=== PATIENT | male | born 1930 | race Caucasian/White ===

== ENCOUNTER → 2017-09-18 | Outpatient (CLI) | payer MEDICARE ==
[2017-09-18 12:08] LABS: ABSOLUTE BASOPHILS # (AUTO) 0.1 10^3/uL (0.0-0.2); ABSOLUTE EOSINOPHILS # (AUTO) 0.1 10^3/uL (0.0-0.6); ABSOLUTE LYMPHOCYTES (AUTO) 1.6 10^3/uL (0.5-4.7); ABSOLUTE MONOCYTES (AUTO) 0.7 10^3/uL (0.1-1.4); BASOPHILS % (AUTO) 0.9 % (0-2); EOSINOPHILS % (AUTO) 1.7 % (0-6); HEMATOCRIT 43.5 % (37.9-51.0); HEMOGLOBIN 14.6 g/dL (13.5-17.0); HGB HCT DIFFERENCE 0.3; LYMPHOCYTES % (AUTO) 18.5 % (13-45); MEAN CORPUSCULAR HEMOGLOBIN 33.3 pg (27.0-33.4); MEAN CORPUSCULAR HGB CONC 33.5 g/dL (32.0-36.0); MEAN CORPUSCULAR VOLUME 100 fl (80-97); MONOCYTES % (AUTO) 8.4 % (3-13); RED BLOOD COUNT 4.37 10^6/uL (4.35-5.55); RED CELL DISTRIBUTION WIDTH 15.4 % (11.5-14.0); SEGMENTED NEUTROPHILS % (AUTO) 70.5 % (42-78); WHITE BLOOD COUNT 8.5 10^3/uL (4.0-10.5)
[2017-09-18 12:46] LABS: ERYTHROCYTE SEDIMENTATION RATE 11 mm/hr (0-20)
== END ==
LOC: OD 11:08
PROVIDERS: ATTEND Orthopaedic Surgery Sports Medicine
DX: M16.12 Unilateral primary osteoarthritis, left hip (principal); M25.552 Pain in left hip; Z96.643 Presence of artificial hip joint, bilateral
CPT/HCPCS: 36415; 85025; 85652; 86140

== ENCOUNTER → 2017-09-20 | Outpatient (CLI) | payer MEDICARE ==
--- NOTE | 2017-09-20 16:14 | RADIOLOGY REPORT (SQ) ---
EXAM DESCRIPTION: NM 3 PHASE BONE SCAN COMPLETED DATE/TIME: 09/20/2017 2:53 pm REASON FOR STUDY: M25.552 PAIN IN LEFT HIP M25.552 PAIN IN LEFT HIP COMPARISON: Left hip films 06/14/2017, 03/30/2017 RADIONUCLIDE AND DOSE: 22 millicuries Tc99m MDP. The route of agent administration: Intravenous. ADDITIONAL DRUGS AND DOSES: None. TECHNIQUE: Following injection of the radiopharmaceutical, serial blood flow images acquired. Equil ibrium blood pool images then acquired. Routine delayed images at 3 hours acquired of the areas of c linical concern with additional focused images as needed. AREA OF INTEREST: Bony pelvis and left hip LIMITATIONS: None. FINDINGS: VASCULAR FLOW IMAGES: No asymmetry or focal areas of hyperemia. BLOOD POOL IMAGES: No asymmetry or focal areas of soft-tissue hyper-perfusion. BONES: Delayed images demonstrate markedly increased uptake along the left proximal femur greater and lesser trochanter in an area of incompletely healed fracture. There is also focal increased uptake along the distal tip of the left femoral component of the hip replacement indicating loosening of the prosthesis. No abnormal bony pelvis uptake worrisome for occult pelvic fracture. OTHER: No other significant finding. IMPRESSION: Increased uptake along the left proximal femur greater and lesser trochanter in an area of incompletely healed fracture. Suspect left femoral component prosthesis loosening, with increased uptake along the left femoral gavin physis adjacent to the tip of the prosthesis COMMENT: Quality measure 147: Current bone scan is compared with any available plain radiographs, p rior bone scans, and CT/MRI. TECHNICAL DOCUMENTATION: JOB ID: [id number] [employer]- All Rights Reserved
== END ==
LOC: RAD 11:31
PROVIDERS: ATTEND Orthopaedic Surgery Sports Medicine
DX: M25.552 Pain in left hip (principal)
CPT/HCPCS: 78315; A9561; Q9969

== ENCOUNTER → 2017-10-26 | Outpatient (CLI) | payer MEDICARE ==
--- NOTE | 2017-10-26 15:09 | RADIOLOGY REPORT (SQ) ---
EXAM DESCRIPTION: VENOUS UNILATERAL LOWER COMPLETED DATE/TIME: 10/26/2017 3:01 pm REASON FOR STUDY: LLE SWELLING R60.0 LOCALIZED EDEMA COMPARISON: None. TECHNIQUE: Dynamic and static contreras scale and color images acquired of the left leg venous system. Se lected spectral images acquired with additional compression and augmentation maneuvers. The contralat eral common femoral vein and saphenofemoral junction were also imaged. Images stored on PACS. LIMITATIONS: None. FINDINGS: COMMON FEMORAL: Normal phasicity, compression and augmentation. No visualized echogenic ma terial on contreras scale. No defects on color images. FEMORAL: Normal compression and augmentation. No visualized echogenic material on contreras scale. No defe cts on color images. POPLITEAL: Normal compression, augmentation. No visualized echogenic material on contreras scale. No defec ts on color images. CALF VESSELS: Normal compression, augmentation. No visualized echogenic material on contreras scale. No de fects on color images. GSV and SSV: Normal compression, augmentation. No visualized echogenic material on contreras scale. No def ects on color images. ANY DEEP VENOUS INSUFFICIENCY: Not evaluated. ANY EVIDENCE OF POPLITEAL CYST: No. OTHER: No other significant finding. CONTRALATERAL COMMON FEMORAL VEIN AND SAPHENOFEMORAL JUNCTION: Normal phasicity, compression and augmentation. No visualized echogenic material on contreras scale. No de fects on color images. IMPRESSION: NO EVIDENCE DVT OR SVT IN THE LEFT LEG. TECHNICAL DOCUMENTATION: JOB ID: [id number] [employer]- All Rights Reserved
== END ==
LOC: SP 13:54
PROVIDERS: ATTEND Internal Medicine
DX: R60.0 Localized edema (principal)
CPT/HCPCS: 93971

== ENCOUNTER 2020-04-06 10:13 | Emergency (ER) | payer MEDICARE ==
[2020-04-06] MEDS ORDERED: ASPIRIN 81 MG TABLET, CHEWABLE PO ONE (10:25)
--- NOTE | 2020-04-06 10:29 | ER Document Report ---
ED Medical Screen (RME) - General Chief Complaint: Shortness Of Breath Stated Complaint: CHEST PAIN,SHORTNESS OF BREATH Primary Care Provider: ARVIN TAYLOR MD [Primary Care Provider] - Follow up as needed Mode of Arrival: Wheelchair Information source: Patient, Relative Notes: 89-year-old male presented to ED for upper back pain after he fell a week ago. He does have a bruise to the left upper back. Patient has pain with deep breathing. He is alert and oriented . He states he does have a pacemaker that paces his heart. He states he has had shortness of breath since this fall. I have greeted and performed a rapid initial assessment of this patient. A comprehensive ED assessment and evaluation of the patient, analysis of test results and completion of medical decision making process will be conducted by an additional ED providers. TRAVEL OUTSIDE OF THE [place] IN LAST 30 DAYS: No - Related Data Allergies/Adverse Reactions: codeine [Codeine] Adverse Reaction (Verified 07/25/16 02:57) N/V morphine [Morphine] Adverse Reaction (Verified 07/25/16 02:57) NAUSEA AND VOMITING Past Medical History - Past Medical History Cardiac Medical History: Reports: Hx Atrial Fibrillation, Hx Hypertension Denies: Hx Congestive Heart Failure, Hx DVT, Hx Heart Attack, Hx Hypercholesterolemia, Hx Pulmonary Embolism Pulmonary Medical History: Reports: Hx Asthma - ALBUTEROL RESCUE INHALER PRN Neurological Medical History: Denies: Hx Cerebrovascular Accident, Hx Seizures Endocrine Medical History: Denies: Hx Diabetes Mellitus Type 1, Hx Diabetes Mellitus Type 2, Hx Hyperthyroidism, Hx Hypothyroidism Malignancy Medical History: Reports Hx Skin Cancer GI Medical History: Reports: Hx Gastroesophageal Reflux Disease. Denies: Hx Cirrhosis, Hx Hepatitis, Hx Hiatal Hernia, Hx Ulcer Musculoskeltal Medical History: Reports Hx Arthritis Skin Medical History: Denies Hx Eczema, Denies Hx Psoriasis Psychiatric Medical History: Denies: Hx Depression Infectious Medical History: Denies: Hx Hepatitis Past Surgical History: Reports: Hx Cardiac Surgery - pacemaker placement, Hx Cholecystectomy, Hx Orthopedic Surgery - hip replacement, Hx Pacemaker. Denies: Hx Open Heart Surgery - Immunizations Hx Diphtheria, Pertussis, Tetanus Vaccination: No Doctor's Discharge - Discharge Referrals: ARVIN TAYLOR MD [Primary Care Provider] - Follow up as needed
--- NOTE | 2020-04-06 10:45 | EKG REPORT ---
SEVERITY:- ABNORMAL ECG - ATRIAL-SENSED VENTRICULAR-PACED RHYTHM : Confirmed by: Singh Sevilla MD 06-Apr-2020 10:44:09
--- NOTE | 2020-04-06 11:10 | RADIOLOGY REPORT (SQ) ---
EXAM DESCRIPTION: CHEST SINGLE VIEW IMAGES COMPLETED DATE/TIME: 04/06/2020 10:58 am REASON FOR STUDY: Fall week ago continued pain in the posterior ribs COMPARISON: 07/25/2016 EXAM PARAMETERS: NUMBER OF VIEWS: One view. TECHNIQUE: Single frontal radiographic view of the chest acquired. RADIATION DOSE: NA LIMITATIONS: None. FINDINGS: LUNGS AND PLEURA: No opacities, masses or pneumothorax. No pleural effusion. MEDIASTINUM AND HILAR STRUCTURES: No masses. Contour normal. HEART AND VASCULAR STRUCTURES: Heart normal in size. Normal vasculature. BONES: No acute findings. HARDWARE: Left-sided cardiac pacer with leads overlying right atrium and right ventricle. OTHER: No other significant finding. IMPRESSION: No evidence of acute cardiopulmonary process. TECHNICAL DOCUMENTATION: JOB ID: [id number] 2010 [employer]- All Rights Reserved Reading location - IP/workstation name: [email or web address]
[2020-04-06 11:21] LABS: ABSOLUTE LYMPHOCYTES (AUTO) 0.4 10^3/uL (0.5-4.7); ABSOLUTE MONOCYTES (AUTO) 0.5 10^3/uL (0.1-1.4); BASOPHILS % (AUTO) 0.7 % (0-2); EOSINOPHILS % (AUTO) 0.3 % (0-6); LYMPHOCYTES % (AUTO) 8.9 % (13-45); MEAN CORPUSCULAR HEMOGLOBIN 32.2 pg (27.0-33.4); MEAN CORPUSCULAR HGB CONC 33.3 g/dL (32.0-36.0); MEAN CORPUSCULAR VOLUME 97 fl (80-97); MONOCYTES % (AUTO) 9.6 % (3-13); PLATELET COUNT 263 10^3/uL (150-450); RED BLOOD COUNT 4.64 10^6/uL (4.35-5.55); RED CELL DISTRIBUTION WIDTH 24.4 % (11.5-14.0); SEGMENTED NEUTROPHILS % (AUTO) 80.5 % (42-78); TOTAL CELLS COUNTED % (AUTO) 100 %; WHITE BLOOD COUNT 4.9 10^3/uL (4.0-10.5)
[2020-04-06 11:46] LABS: ANISOCYTOSIS 3+; POIKILOCYTOSIS SLIGHT
[2020-04-06 11:47] LABS: OVALOCYTES SLIGHT; PLATELET CLUMPS PRESENT; PLATELET COMMENT ADEQUATE
[2020-04-06 11:53] LABS: ALBUMIN 3.5 g/dL (3.5-5.0); ALKALINE PHOSPHATASE 127 U/L (38-126); ANION GAP 6 (5-19); ASPARTATE AMINO TRANSFERASE 62 U/L (17-59); BILIRUBIN,DIRECT 0.3 mg/dL (0.0-0.4); BLOOD UREA NITROGEN 29 mg/dL (7-20); CALCIUM 8.3 mg/dL (8.4-10.2); CARBON DIOXIDE 27 mmol/L (22-30); CHLORIDE 107 mmol/L (98-107); GLUCOSE 110 mg/dL (75-110); POTASSIUM 4.2 mmol/L (3.6-5.0); TOTAL PROTEIN 6.7 g/dL (6.3-8.2)
[2020-04-06 12:06] LABS: NT PRO BNP 277 pg/mL (<450)
[2020-04-06 12:11] LABS: TROPONIN I < 0.012 ng/mL
[2020-04-06 12:53] LABS: APPEARANCE,URINE CLOUDY; BILIRUBIN,URINE NEGATIVE (NEGATIVE); COLOR,URINE YELLOW; GLUCOSE, URINE NEGATIVE (NEGATIVE); KETONES,URINE NEGATIVE (NEGATIVE); PROTEIN,URINE NEGATIVE (NEGATIVE); URINE SPECIFIC GRAVITY 1.014; UROBILINOGEN,URINE NEGATIVE mg/dL (<2.0)
[2020-04-06 13:38] LABS: INTERNATIONAL RATION (INR) 2.11
[2020-04-06 13:39] LABS: PARTIAL THROMBOPLASTIN TIME 43.8 SEC (23.5-35.8)
--- NOTE | 2020-04-06 13:42 | ER Document Report ---
ED General - General Chief Complaint: Shortness Of Breath Stated Complaint: CHEST PAIN,SHORTNESS OF BREATH Time Seen by Provider: 04/06/20 10:29 Primary Care Provider: ARVIN TAYLOR MD [Primary Care Provider] - Follow up as needed Mode of Arrival: Wheelchair TRAVEL OUTSIDE OF THE [place] IN LAST 30 DAYS: No - HPI Notes: Patient is an 89-year-old male who presents to the emergency department for evaluation of shortness of breath. He states he woke suddenly at about 2 AM with it. He had been laying on his left side. He states that he has had some pain in the right side of his thorax, posteriorly. He states that he has had that pain since waking up at 2 AM. He states that shortness of breath and that pain resolved prior to arrival. He states he is also had some pain in his right inferior chest, but this is from falling and striking his chest wall on a table last week. He denied hitting his head or losing consciousness. No neck or back pain. He said no fevers or chills. He is not coughing. He is swelling in his legs, but he states that improved by the next morning every night. He states the swelling is not been worse than normal. He denies any medication changes. He has been taking his medications as prescribed. His pain is sharp, sore, worsened by touch. Nothing seems to make it better. He states that the dyspnea that he had overnight was not improved by sitting up. He really did not find anything that made it better or worse. - Related Data Allergies/Adverse Reactions: codeine [Codeine] Adverse Reaction (Verified 07/25/16 02:57) N/V morphine [Morphine] Adverse Reaction (Verified 07/25/16 02:57) NAUSEA AND VOMITING Home Medications: List reviewed on chart Past Medical History - General Information source: Patient, Relative - Social History Smoking Status: Never Smoker Family History: Reviewed & Not Pertinent, Hypertension - Past Medical History Cardiac Medical History: Reports: Hx Atrial Fibrillation, Hx Hypertension Denies: Hx Congestive Heart Failure, Hx DVT, Hx Heart Attack, Hx Hypercholesterolemia, Hx Pulmonary Embolism Pulmonary Medical History: Reports: Hx Asthma - ALBUTEROL RESCUE INHALER PRN Neurological Medical History: Denies: Hx Cerebrovascular Accident, Hx Seizures Endocrine Medical History: Denies: Hx Diabetes Mellitus Type 1, Hx Diabetes Mellitus Type 2, Hx Hyperthyroidism, Hx Hypothyroidism Malignancy Medical History: Reports Hx Skin Cancer GI Medical History: Reports: Hx Gastroesophageal Reflux Disease. Denies: Hx Cirrhosis, Hx Hepatitis, Hx Hiatal Hernia, Hx Ulcer Musculoskeletal Medical History: Reports Hx Arthritis Skin Medical History: Denies Hx Eczema, Denies Hx Psoriasis Psychiatric Medical History: Denies: Hx Depression Infectious Medical History: Denies: Hx Hepatitis Past Surgical History: Reports: Hx Cholecystectomy, Hx Orthopedic Surgery - hip replacement, Hx Pacemaker. Denies: Hx Open Heart Surgery - Immunizations Hx Diphtheria, Pertussis, Tetanus Vaccination: No Hx Pneumococcal Vaccination: 07/02/14 Review of Systems - Review of Systems Constitutional: Weakness Cardiovascular: See HPI Respiratory: See HPI Musculoskeletal: See HPI -: Yes All other systems reviewed and negative Physical Exam - Vital signs Vitals: Temp Pulse Resp BP Pulse Ox 98.7 F 78 18 128/66 H 93 04/06/20 10:36 04/06/20 10:36 04/06/20 10:36 04/06/20 10:36 04/06/20 10:36 - Notes Notes: Vital signs reviewed, please refer to chart. Head is normocephalic, atraumatic. Pupils equal round, reactive to light. Neck is supple without meningismus. Heart sounds are distant. Lungs are clear to auscultation bilaterally. Examination of the chest wall yields healing ecchymosis over the left anterior inferior chest, but no tenderness there. He is tender over the right ribs, 9 through 11, from the midclavicular line and lateral to the anterior axillary line. Abdomen is obese, tender in the right upper quadrant with some voluntary guarding, no rebound, normoactive bowel sounds throughout. Extremities without cyanosis, clubbing. He does have 3+ pitting pretibial edema. Posterior calves are nontender. Peripheral pulses are equal. Skin is warm and dry. Patient is awake, alert, neurological exam is nonfocal. Course - Re-evaluation Re-evalutation: 04/06/20 13:42 Patient presents to the emergency department for evaluation. He has shortness of breath. His vital signs are largely unremarkable. The patient had normal lab work-up prior to my arrival. His INR is added. He did have some trauma to his chest wall and abdomen, he does have some voluntary guarding. I am inclined to evaluate him for further injury. Patient is currently stable. 04/06/20 13:43 Please note I will also add a COVID test. I am waiting to see if he has any acute findings on his chest, abdomen, pelvis before deciding whether it should be rapid or not. We will also interrogate his pacemaker. 04/06/20 14:02 Notified that the last time the patient had IV dye he turned "beet red." He is given Solu-Medrol and Pepcid, will order 12-1/2 mg of IV Benadryl, particularly given his age, and assess for response. 04/06/20 17:[address] scan showed possible pneumonia, atypical appearance. COVID-19 test ordered. I will also cover for bacterial pneumonia. Overall, the patient is oxygenating well. He is not dyspneic. In fact, the patient has absolutely no symptoms at this time. He does not wish to stay in the hospital. We talked at length about his comorbidities, his concurrent Coumadin use, and the risks of bleeding with this. He voiced understanding and still wishes to go home. I explained to the patient that he should drop to his Coumadin lower dose, which is 3 mg, daily. He is able to check his INR at home, he is encouraged to do so. I will send him on doxycycline. 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 In fact he has a physician's appointment tomorrow with Dr. Christy to discuss this. I explained to the patient he needs to contact Dr. Christy's office immediately, let them know he is currently a PUI and see if alternate arrangements should be made in regards to his visit. He voiced understanding to this as well. The patient also understands that if any worsening, or new concerning symptoms occur, he needs to return immediately to the ER for further evaluation and likely admission. - Vital Signs Vital signs: Temp Pulse Resp BP Pulse Ox 98.3 F 78 15 121/75 95 04/06/20 16:35 04/06/20 10:36 04/06/20 16:00 04/06/20 15:00 04/06/20 16:00 - Laboratory Result Diagrams: 04/06/20 11:01 04/06/20 11:01 Laboratory results interpreted by me: 04/06/20 04/06/20 04/06/20 11:01 11:01 11:01 RDW 24.4 H Lymph % (Auto) 8.9 L Absolute Lymphs (auto) 0.4 L Seg Neutrophils % 80.5 H PT APTT BUN 29 H Creatinine 1.45 H Est GFR ( Amer) 55 L Est GFR (MDRD) Non-Af 46 L Calcium 8.3 L AST 62 H Alkaline Phosphatase 127 H Urine Blood LARGE H 04/06/20 11:01 RDW Lymph % (Auto) Absolute Lymphs (auto) Seg Neutrophils % PT 24.0 H APTT 43.8 H BUN Creatinine Est GFR ( Amer) Est GFR (MDRD) Non-Af Calcium AST Alkaline Phosphatase Urine Blood Discharge - Discharge Clinical Impression: Person under investigation for COVID-19, Left renal mass, Anticoagulated on Coumadin Pneumonia Qualifiers: Pneumonia type: due to unspecified organism Laterality: unspecified laterality Lung location: unspecified part of lung Qualified Code(s): J18.9 - Pneumonia, unspecified organism Condition: Stable Disposition: HOME, SELF-CARE Instructions: Pneumonia ([facility]), Dyspnea, Nonspecific ([facility]) Additional Instructions: Please take the antibiotic as prescribed. As discussed, this will thin your blood further. Please take the lower dosage of your Coumadin, check your INR at home frequently, and hold your Coumadin should your INR become too high. Follow-up with your primary care provider next Monday. You have a COVID-19 test pending at this time. Please isolate yourself until results are reported. You should not report to Dr. Christy's office until you have called them, notified them you have been tested, and arrangements have been made. Otherwise, take all of the doxycycline as prescribed. If you develop fevers, pain, worsening shortness of breath, or any other new or concerning symptoms, please return immediately to the emergency department for reevaluation. Referrals: ARVIN TAYLOR MD [Primary Care Provider] - Follow up as needed
[2020-04-06] MEDS ORDERED: METHYLPREDNISOLONE INJ 125 MG/2 ML SDV IV ONE (14:01)
[2020-04-06] MEDS ORDERED: FAMOTIDINE INJ/PF 20 MG/2 ML SDV IV ONE (14:01)
[2020-04-06] MEDS ORDERED: DIPHENHYDRAMINE HCL 50 MG/ML VIAL IV ONE (14:01)
--- NOTE | 2020-04-06 16:13 | RADIOLOGY REPORT (SQ) ---
EXAM DESCRIPTION: CT ABD/PELVIS WITH IV ONLY IMAGES COMPLETED DATE/TIME: 04/06/2020 3:42 pm REASON FOR STUDY: RUQ tenderness, fall, on coumadin COMPARISON: None. TECHNIQUE: CT scan of the abdomen and pelvis performed using helical scanning technique with dynamic intravenous contrast injection. No oral contrast. Images reviewed with lung, soft tissue, and bone windows. Reconstructed coronal and sagittal MPR images reviewed. Delayed images for evaluation of the urinary system also acquired. All images stored on PACS. All CT scanners at this facility use dose modulation, iterative reconstruction, and/or weight based d osing when appropriate to reduce radiation dose to as low as reasonably achievable (ALARA). [facility]: Dose Right [facility]: CareDose [facility]: Dose Right [facility]: Teradose 4D [facility]: Diavibe CONTRAST TYPE AND DOSE: Omnipaque 350 100 cc RENAL FUNCTION: Creatinine 1.45 RADIATION DOSE: . LIMITATIONS: None. FINDINGS: LOWER CHEST: See separate report of the CT of the chest. LIVER: Normal size. No masses. No dilated ducts. SPLEEN: Normal size. No focal lesions. PANCREAS: No masses. No significant calcifications. No adjacent inflammation or peripancreatic fluid collections. Pancreatic duct not dilated. GALLBLADDER: Surgically absent. ADRENAL GLANDS: No significant masses or asymmetry. RIGHT KIDNEY AND URETER: Few renal cysts. Intermediate density interpolar lesion measuring up to 2.2 cm (series 102, image 36). Diffuse cortical thinning. No significant calcifications. No hydronep hrosis or hydroureter. LEFT KIDNEY AND URETER: There is a solid mass within the interpolar region measuring approximately 4. 6 x 4.2 (series 102, image 45). Renal cyst. Additional interval immediate density renal lesions, li dereck proteinaceous cysts but indeterminate. No significant calcifications. No hydronephrosis or h ydroureter. AORTA AND VESSELS: Aortoiliac atherosclerosis without aneurysm. No dissection. Renal arteries, SMA, c eliac without stenosis. Retroaortic left renal vein. RETROPERITONEUM: No retroperitoneal adenopathy, hemorrhage or masses. BOWEL AND PERITONEAL CAVITY: No evidence of intestinal obstruction. No focal bowel wall thickening. Scattered colonic diverticula. Small hiatal hernia. APPENDIX: Not visualized. PELVIS: No mass. No free fluid. Normal bladder. ABDOMINAL WALL: Sigmoid colon and fat containing left inguinal hernia. No evidence of intestinal obs truction. No subcutaneous soft tissue masses. BONES: No acute bony abnormality. No suspicious lytic osseous lesions. Lower lumbar spondylosis and facet arthropathy. Partially visualized left hip arthroplasty. Sclerotic lesion within the left is chial tuberosity measuring 3.8 cm. OTHER: No other significant finding. IMPRESSION: 1. 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 Additional intermediate density renal lesions, likely proteinaceous cysts although incompletely mireya acterized. No lymphadenopathy. 2. Indeterminate sclerotic lesion within the left ischial tuberosity measuring 3.8 cm. No additiona l evidence of intra-abdominal/pelvic metastatic disease. 3. No evidence of acute intra-abdominal/pelvic process. Findings conveyed to Dr. Sylvester at 1605 hours on 04/06/2020 TECHNICAL DOCUMENTATION: JOB ID: [id number] Quality ID # [id number]: Final reports with documentation of one or more dose reduction techniques (e.g., Au tomated exposure control, adjustment of the mA and/or kV according to patient size, use of iterative reconstruction technique) 2010 [employer]- All Rights Reserved Reading location - IP/workstation name: [email or web address]
--- NOTE | 2020-04-06 16:36 | RADIOLOGY REPORT (SQ) ---
EXAM DESCRIPTION: CTA CHEST IMAGES COMPLETED DATE/TIME: 04/06/2020 3:42 pm REASON FOR STUDY: chest pain, dyspnea COMPARISON: 01/29/2020 TECHNIQUE: CT scan of the chest performed using helical scanning technique with dynamic intravenous contrast injection. Images reviewed with lung, soft tissue and bone windows. Reconstructed coronal and sagittal MPR images reviewed. Additional 3 dimensional post-processing performed to develop Maximal Intensity Projection images (WA P). All images stored on PACS. All CT scanners at this facility use dose modulation, iterative reconstruction, and/or weight based d osing when appropriate to reduce radiation dose to as low as reasonably achievable (ALARA). [facility]: Dose Right [facility]: CareDose [facility]: Dose Right [facility]: Teradose 4D [facility]: [employer] CONTRAST TYPE AND DOSE: contrast/concentration: Isovue 350.00 mmol/ml; Total Contrast Delivered: 100 .0 ml; Total Saline Delivered: 71.0 ml Contrast bolus optimized for the pulmonary arteries. Not diagnostic for the aorta. RENAL FUNCTION: BUN 29 creatinine 1.45 RADIATION DOSE: CT Rad equipment meets quality standard of care and radiation dose reduction techniq ues were employed. CTDIvol: 28.8 - 45.0 mGy. DLP: 5350 mGy-cm. . LIMITATIONS: None. FINDINGS: LUNGS AND PLEURA: There are some small areas of ground-glass opacification in the upper lo bes. No masses no pleural effusions. Mild airspace disease in the right base. AORTA AND GREAT VESSELS: No aneurysm. No dissection. HEART: No pericardial effusion. No significant coronary artery calcifications. PULMONARY ARTERIES: No emboli visualized in the main pulmonary arteries or the segmental branches. HILAR AND MEDIASTINAL STRUCTURES: No identified masses or abnormal nodes. HARDWARE: Pacemaker UPPER ABDOMEN: No significant findings. Limited exam. THYROID AND OTHER SOFT TISSUES: No masses. No adenopathy. BONES: No acute or significant finding. 3D MIPS: Confirm above findings. OTHER: No other significant finding. IMPRESSION: 1. There are some small areas of ground-glass opacification in the upper lobes. These may represent areas of interstitial edema or merely chronic interstitial changes. These may represen t areas of atypical infectious/ inflammatory process. 2. There is patchy airspace disease in the right lower lobe the posterior costophrenic sulcus, pneum onia versus atelectasis. COMMENT: Quality ID # [id number]: Final reports with documentation of one or more dose reduction techniques (e.g., Automated exposure control, adjustment of the mA and/or kV according to patient size, use of iterative reconstruction technique) TECHNICAL DOCUMENTATION: JOB ID: [id number] 2010 [employer]- All Rights Reserved Reading location - IP/workstation name: [email or web address]
[2020-04-06] MEDS ORDERED: DOXYCYCLINE HYCLATE 100 MG TABLET PO ONE (17:22)
[2020-04-06 17:54] VITALS: BP 133/82
== END 2020-04-06 17:54 | disposition home or self-care (01) ==
LOC: ER 10:13
DX: J18.9 Pneumonia, unspecified organism (principal); N28.89 Other specified disorders of kidney and ureter; R06.02 Shortness of breath; R07.9 Chest pain, unspecified; W18.00XA Striking against unspecified object with subsequent fall, initial encounter; Z88.8 Allergy status to other drugs, medicaments and biological substances; I10 Essential (primary) hypertension; J45.909 Unspecified asthma, uncomplicated; Z20.828 Contact with and (suspected) exposure to other viral communicable diseases; Z79.01 Long term (current) use of anticoagulants
CPT/HCPCS: 93005; 99285; 96374; 96375; 36415; 83735; 85025; 85610; 85730; 80053; 81001; 84484; 83880; 71045; 71275; 74177; 93010; U0003; A9270 ×2; J1200; J2930; S0028; C9803; 87635

== ENCOUNTER 2020-04-08 10:03 | Emergency (ER) | payer MEDICARE ==
--- NOTE | 2020-04-08 10:56 | RADIOLOGY REPORT (SQ) ---
EXAM DESCRIPTION: CHEST SINGLE VIEW IMAGES COMPLETED DATE/TIME: 04/08/2020 10:45 am REASON FOR STUDY: chest pain COMPARISON: 04/06/2020 EXAM PARAMETERS: NUMBER OF VIEWS: One view. TECHNIQUE: Single frontal radiographic view of the chest acquired. RADIATION DOSE: NA LIMITATIONS: None. FINDINGS: LUNGS AND PLEURA: No opacities, masses or pneumothorax. No pleural effusion. MEDIASTINUM AND HILAR STRUCTURES: No masses. Contour normal. HEART AND VASCULAR STRUCTURES: Heart normal in size. Normal vasculature. BONES: No acute findings. HARDWARE: Left-sided cardiac pacer with leads overlying right atrium and right ventricle. OTHER: No other significant finding. IMPRESSION: No evidence of acute cardiopulmonary process. TECHNICAL DOCUMENTATION: JOB ID: [id number] 2010 [employer]- All Rights Reserved Reading location - IP/workstation name: [email or web address]
--- NOTE | 2020-04-08 11:12 | ER Document Report ---
Entered by ISABELLA SANTOS SCRIBE 04/08/20 1026 Acting as scribe for:DEION MATHIS MD ED General - General Chief Complaint: Chest Pain Stated Complaint: WEAKNESS/CHEST PAIN Time Seen by Provider: 04/08/20 10:20 Primary Care Provider: ARVIN TAYLOR MD [NO LOCAL MD] - Follow up as needed Mode of Arrival: Ambulatory Information source: Patient Notes: This 89 year old male patient presents to the emergency department today with complaints of right sided chest wall pain and feeling "as weak as water" for the last few days. Patient was seen here on 04/06 (two days ago) and he was diagnosed with pneumonia and sent home on antibiotics. During that visit he mentioned that he had fallen and struck a coffee table, hitting the right side of his chest. Patient states that this pain has continued and it hurts when he breathes today. Patient also mentions that he feels like there is "something in his chest that he cannot cough up". Patient denies any change in his pain over the last 2 days. Patient has not had any fevers. Review of records shows that the patient fell several days ago against a piece of furniture striking his right anterior chest wall. He was seen here 2 days ago with pain in that particular region. He had a chest x-ray and chest CT done with contrast. It showed what was most likely atelectasis in the right lower lobe posterior costophrenic sulcus. He was put on doxycycline 100 mg twice daily in case that was a pneumonia. TRAVEL OUTSIDE OF THE [place] IN LAST 30 DAYS: No - Related Data Allergies/Adverse Reactions: codeine [Codeine] Adverse Reaction (Verified 07/25/16 02:57) N/V morphine [Morphine] Adverse Reaction (Verified 07/25/16 02:57) NAUSEA AND VOMITING Past Medical History - General Information source: Patient - Social History Smoking Status: Former Smoker Cigarette use (# per day): No Chew tobacco use (# tins/day): No Smoking Education Provided: No Frequency of alcohol use: None Drug Abuse: None Occupation: retired Lives with: Family Family History: Reviewed & Not Pertinent, Hypertension - Past Medical History Cardiac Medical History: Reports: Hx Atrial Fibrillation, Hx Hypertension Pulmonary Medical History: Reports: Hx Asthma - ALBUTEROL RESCUE INHALER PRN Malignancy Medical History: Reports Hx Skin Cancer GI Medical History: Reports: Hx Gastroesophageal Reflux Disease Musculoskeletal Medical History: Reports Hx Arthritis Past Surgical History: Reports: Hx Cholecystectomy, Hx Orthopedic Surgery - hip replacement, Hx Pacemaker - Immunizations Hx Diphtheria, Pertussis, Tetanus Vaccination: No Hx Pneumococcal Vaccination: 07/02/14 Review of Systems - Review of Systems Constitutional: denies: Fever EENT: No symptoms reported Cardiovascular: See HPI, Chest pain - right sided Respiratory: See HPI, Hurts to breathe Gastrointestinal: No symptoms reported Genitourinary: No symptoms reported Male Genitourinary: No symptoms reported Musculoskeletal: No symptoms reported Skin: No symptoms reported Hematologic/Lymphatic: No symptoms reported Neurological/Psychological: No symptoms reported -: Yes All other systems reviewed and negative Physical Exam - Vital signs Vitals: Temp Pulse Resp BP Pulse Ox 100.0 F 86 27 H 128/68 H 94 04/08/20 10:48 04/08/20 10:48 04/08/20 10:48 04/08/20 10:48 04/08/20 10:48 - Notes Notes: Physical Exam: General: Alert, appears age appropriate. HEENT: Normocephalic. Atraumatic. PERRL. Extraocular movements intact. Oropharynx clear. Neck: Supple. Non-tender. Respiratory: No respiratory distress. Clear and equal breath sounds bilaterally. Right mid anterior chest wall very tender to palpate. This reproduces his chief complaint of right sided chest pain. Lungs are essentially clear. Cardiovascular: Regular rate and rhythm. Abdominal: Obese. Non-tender. No distension. Normal Bowel Sounds. Back: No gross abnormalities. Extremities: Moves all four extremities. Upper extremities: Normal inspection. Normal ROM. Lower extremities: 2+ edema bilaterally. Neurological: Normal cognition. AAOx4. Normal speech. I did have the patient try to sit up so I could listen to him breathe, when he reached out to grab the railings, he was trembling and shaking and unable to get himself up at all. We had to assist him by lifting him on either side of his upper back to get him off the table. Psychological: Normal affect. Normal Mood. Skin: Warm. Dry. Normal color. Course - Re-evaluation Re-evalutation: 04/08/20 14:12 Patient states that he is feeling much better after the Percocet earlier. He is not feeling the pain in his chest now. I did have him try to sit up again, and he is not shaking like it was earlier, and he is able to actually pull himself up to sitting position without any assistance. At this time his back skin feels very warm and is a little diaphoretic. This may be to the acetaminophen and his Percocet, and his earlier low-grade fever. The COVID test done 2 days ago is still pending. I called the lab and they said the testing takes 2 to 3 days to get back from [facility]. - Vital Signs Vital signs: Temp Pulse Resp BP Pulse Ox 99.1 F 86 16 111/68 93 04/08/20 14:18 04/08/20 10:48 04/08/20 14:00 04/08/20 11:16 04/08/20 14:00 - Laboratory Result Diagrams: 04/08/20 10:30 04/08/20 10:30 Laboratory results interpreted by me: 04/08/20 04/08/20 04/08/20 10:30 10:30 10:30 MCV 98 H RDW 24.0 H Lymph % (Auto) 5.1 L Absolute Lymphs (auto) 0.4 L Seg Neutrophils % 87.0 H PT 27.8 H BUN 41 H Creatinine 1.56 H Est GFR ( Amer) 51 L Est GFR (MDRD) Non-Af 42 L Calcium 8.3 L AST 66 H Creatine Kinase 246 H Urine Blood 04/08/20 10:30 MCV RDW Lymph % (Auto) Absolute Lymphs (auto) Seg Neutrophils % PT BUN Creatinine Est GFR ( Amer) Est GFR (MDRD) Non-Af Calcium AST Creatine Kinase Urine Blood LARGE H - Diagnostic Test Radiology reviewed: Image reviewed, Reports reviewed - Chest x-ray does not show acute cardiopulmonary process - EKG Interpretation by Me EKG shows normal: [place], Intervals, QRS Complexes, ST-T Waves Rate: Normal - 85 Rhythm: Other - Ventricular paced rhythm Discharge - Discharge Clinical Impression: Anticoagulated on Coumadin, Left renal mass, Person under investigation for COVID-19 Chest pain Qualifiers: Chest pain type: chest pain on breathing Qualified Code(s): R07.1 - Chest pain on breathing Fever Qualifiers: Fever type: unspecified Qualified Code(s): R50.9 - Fever, unspecified Condition: Stable Disposition: HOME, SELF-CARE Additional Instructions: Chest Wall Pain: Your chest pain has been diagnosed as coming from the chest wall. This is due to the contusion of the chest wall you received falling against furniture previously. You should contact the doctor immediately if things change. Further evaluation is needed if you develop a fever or cough, if the nature of the pain changes, or if you become short of breath. Your chest pain that you are experiencing is due to the contusion of your right anterior chest wall from falling against furniture. You do have a low-grade fever today. Initially you were quite shaky and weak, that improved after you received a pain pill Percocet, which did have some Tylenol in it. Your temperature came down a little bit and you did start to sweat some after the pain pill. You also seem to have much more strength and are not shaky now. The COVID testing from 2 days ago should be resulted sometime tomorrow. Your oxygen levels and heart rate and blood pressure are good today. Continue your regular medications, including the doxycycline you are prescribed 2 days ago. Take the Percocet pain medication as needed for pain. Take Tylenol every 4 hours for fever if needed. Drink plenty of water today, you were a little dehydrated today. Follow-up with your primary care provider if not improving. RETURN TO THE EMERGENCY ROOM IF ANY NEW OR WORSENING SYMPTOMS. Prescriptions: Oxycodone HCl/Acetaminophen [Percocet 5-325 mg Tablet] 1 tab PO ASDIR PRN #15 tablet PRN Reason: Referrals: ARVIN TAYLOR MD [NO LOCAL MD] - Follow up as needed I personally performed the services described in the documentation, reviewed and edited the documentation which was dictated to the scribe in my presence, and it accurately records my words and actions.
[2020-04-08 11:20] LABS: ABSOLUTE LYMPHOCYTES (AUTO) 0.4 10^3/uL (0.5-4.7); ABSOLUTE MONOCYTES (AUTO) 0.6 10^3/uL (0.1-1.4); ABSOLUTE NEUT (AUTO) 6.9 10^3/uL (1.7-8.2); BASOPHILS % (AUTO) 0.3 % (0-2); HEMATOCRIT 47.3 % (37.9-51.0); HEMOGLOBIN 15.5 g/dL (13.5-17.0); LYMPHOCYTES % (AUTO) 5.1 % (13-45); MEAN CORPUSCULAR HEMOGLOBIN 32.2 pg (27.0-33.4); MEAN CORPUSCULAR HGB CONC 32.8 g/dL (32.0-36.0); MEAN CORPUSCULAR VOLUME 98 fl (80-97); MONOCYTES % (AUTO) 7.6 % (3-13); PLATELET COUNT 305 10^3/uL (150-450); RED BLOOD COUNT 4.83 10^6/uL (4.35-5.55); TOTAL CELLS COUNTED % (AUTO) 100 %
[2020-04-08 11:22] LABS: APPEARANCE,URINE SLIGHTLY-CLOUDY; BILIRUBIN,URINE NEGATIVE (NEGATIVE); COLOR,URINE YELLOW; GLUCOSE, URINE NEGATIVE (NEGATIVE); KETONES,URINE NEGATIVE (NEGATIVE); LEUKOCYTE ESTERASE,URINE NEGATIVE (NEGATIVE); NITRITE,URINE NEGATIVE (NEGATIVE); PROTEIN,URINE NEGATIVE (NEGATIVE); URINE SPECIFIC GRAVITY 1.005; UROBILINOGEN,URINE NEGATIVE mg/dL (<2.0)
[2020-04-08 11:28] LABS: INTERNATIONAL RATION (INR) 2.54; PROTHROMBIN TIME 27.8 SEC (11.4-15.4)
[2020-04-08 11:47] LABS: ALBUMIN 3.5 g/dL (3.5-5.0); ALKALINE PHOSPHATASE 113 U/L (38-126); ANION GAP 7 (5-19); ASPARTATE AMINO TRANSFERASE 66 U/L (17-59); BILIRUBIN,DIRECT 0.3 mg/dL (0.0-0.4); BILIRUBIN,TOTAL 0.9 mg/dL (0.2-1.3); BLOOD UREA NITROGEN 41 mg/dL (7-20); CALCIUM 8.3 mg/dL (8.4-10.2); CARBON DIOXIDE 27 mmol/L (22-30); CHLORIDE 106 mmol/L (98-107); CREATINE KINASE 246 U/L (55-170); GLUCOSE 95 mg/dL (75-110); POTASSIUM 4.2 mmol/L (3.6-5.0); TOTAL PROTEIN 6.8 g/dL (6.3-8.2)
[2020-04-08] MEDS ORDERED: OXYCODONE-ACETAMINOPHEN 5-325 MG TABLET PO ONE (13:09)
[2020-04-08 15:21] VITALS: BP 136/78
--- NOTE | 2020-04-08 16:27 | EKG REPORT ---
SEVERITY:- ABNORMAL ECG - VENTRICULAR-PACED RHYTHM : Confirmed by: Singh Sevilla MD 08-Apr-2020 16:26:05
== END 2020-04-08 15:20 | disposition home or self-care (01) ==
LOC: ER 10:03
DX: N28.89 Other specified disorders of kidney and ureter (principal); R07.1 Chest pain on breathing; R50.9 Fever, unspecified; R07.9 Chest pain, unspecified; R53.1 Weakness; Z20.828 Contact with and (suspected) exposure to other viral communicable diseases; W22.03XD Walked into furniture, subsequent encounter; Z87.891 Personal history of nicotine dependence; J45.909 Unspecified asthma, uncomplicated; I10 Essential (primary) hypertension; I48.91 Unspecified atrial fibrillation; E66.9 Obesity, unspecified; Z79.01 Long term (current) use of anticoagulants; Z88.8 Allergy status to other drugs, medicaments and biological substances
CPT/HCPCS: 93005; 99283; 36415; 87040; 82550; 85025; 85610; 80053; 81001; 84484; 87150 ×26; 71045; 93010; A9270; 87077

== ENCOUNTER 2020-04-17 11:07 | Emergency (ER) | payer MEDICARE ==
[2020-04-17 11:45] LABS: ABSOLUTE EOSINOPHILS # (AUTO) 0.1 10^3/uL (0.0-0.6); ABSOLUTE LYMPHOCYTES (AUTO) 0.9 10^3/uL (0.5-4.7); ABSOLUTE MONOCYTES (AUTO) 0.7 10^3/uL (0.1-1.4); ABSOLUTE NEUT (AUTO) 7.7 10^3/uL (1.7-8.2); BASOPHILS % (AUTO) 0.5 % (0-2); EOSINOPHILS % (AUTO) 0.5 % (0-6); HEMATOCRIT 44.9 % (37.9-51.0); LYMPHOCYTES % (AUTO) 9.1 % (13-45); MEAN CORPUSCULAR HEMOGLOBIN 32.7 pg (27.0-33.4); MEAN CORPUSCULAR HGB CONC 33.4 g/dL (32.0-36.0); MEAN CORPUSCULAR VOLUME 98 fl (80-97); MONOCYTES % (AUTO) 7.7 % (3-13); PLATELET COUNT 461 10^3/uL (150-450); RED BLOOD COUNT 4.59 10^6/uL (4.35-5.55); RED CELL DISTRIBUTION WIDTH 23.5 % (11.5-14.0); SEGMENTED NEUTROPHILS % (AUTO) 82.2 % (42-78); TOTAL CELLS COUNTED % (AUTO) 100 %; WHITE BLOOD COUNT 9.4 10^3/uL (4.0-10.5)
--- NOTE | 2020-04-17 12:03 | RADIOLOGY REPORT (SQ) ---
EXAM DESCRIPTION: CHEST SINGLE VIEW IMAGES COMPLETED DATE/TIME: 04/17/2020 11:44 am REASON FOR STUDY: sob COMPARISON: 04/08/2020 EXAM PARAMETERS: NUMBER OF VIEWS: One view. TECHNIQUE: Single frontal radiographic view of the chest acquired. RADIATION DOSE: NA LIMITATIONS: None. FINDINGS: LUNGS AND PLEURA: Mild hyperexpansion. No acute consolidation. Chronic changes in the le ft base. No effusions. MEDIASTINUM AND HILAR STRUCTURES: No masses. Contour normal. HEART AND VASCULAR STRUCTURES: Heart normal in size. Normal vasculature. BONES: No acute findings. HARDWARE: Battery pack and leads remain in place. OTHER: No other significant finding. IMPRESSION: No acute findings in the chest. TECHNICAL DOCUMENTATION: JOB ID: [id number] 2010 [employer]- All Rights Reserved Reading location - IP/workstation name: [email or web address]
[2020-04-17 12:10] LABS: ALBUMIN 3.2 g/dL (3.5-5.0); ALKALINE PHOSPHATASE 144 U/L (38-126); ANION GAP 7 (5-19); ASPARTATE AMINO TRANSFERASE 54 U/L (17-59); BILIRUBIN,DIRECT 0.3 mg/dL (0.0-0.4); BILIRUBIN,TOTAL 1.1 mg/dL (0.2-1.3); BLOOD UREA NITROGEN 37 mg/dL (7-20); CALCIUM 8.8 mg/dL (8.4-10.2); CARBON DIOXIDE 31 mmol/L (22-30); CHLORIDE 100 mmol/L (98-107); GLUCOSE 112 mg/dL (75-110); POTASSIUM 4.2 mmol/L (3.6-5.0)
[2020-04-17] MEDS ORDERED: ONDANSETRON HCL INJ/PF 4 MG/2 ML SDV IV ONE (12:35)
[2020-04-17 12:43] LABS: APPEARANCE,URINE SLIGHTLY-CLOUDY; BILIRUBIN,URINE NEGATIVE (NEGATIVE); COLOR,URINE YELLOW; GLUCOSE, URINE NEGATIVE (NEGATIVE); KETONES,URINE NEGATIVE (NEGATIVE); LEUKOCYTE ESTERASE,URINE NEGATIVE (NEGATIVE); NITRITE,URINE NEGATIVE (NEGATIVE); PROTEIN,URINE NEGATIVE (NEGATIVE); URINE SPECIFIC GRAVITY 1.013; UROBILINOGEN,URINE NEGATIVE mg/dL (<2.0)
--- NOTE | 2020-04-17 12:48 | ER Document Report ---
Entered by ISABELLA SANTOS SCRIBE 04/17/20 2966 Acting as scribe for:DEION MATHIS MD ED Respiratory Problem - General Chief Complaint: Shortness Of Breath Stated Complaint: FEVER Time Seen by Provider: 04/17/20 11:56 Primary Care Provider: CASSIDY CARDOSO MD [Primary Care Provider] - Follow up as needed Mode of Arrival: Ambulatory Information source: Patient, [facility] Records Notes: This 89-year-old male patient known COVID positive comes emergency room for onset of shortness of breath this morning. He was seen here on 04/06/2020 with URI symptoms and fever. He was discharged on doxycycline twice daily for 7 days. He returned 2 days later feeling quite poorly with fevers and shaking chills. Those symptoms did respond to Tylenol and he is feeling much better when he went home. The COVID test was still pending at that time. He has since had his doxycycline prescription renewed on 04/13/2020 and changed to 1 daily for 30 days by his primary care provider. This was not an in person visit. He now notes that his breathing is much worse when he tries to do any activity. He has had some nauseousness but not quite bad enough to vomit. He has had a nonproductive cough which is not very often. TRAVEL OUTSIDE OF THE [place] IN LAST 30 DAYS: No - Related Data Allergies/Adverse Reactions: codeine [Codeine] Adverse Reaction (Verified 04/17/20 11:34) N/V morphine [Morphine] Adverse Reaction (Verified 04/17/20 11:34) NAUSEA AND VOMITING Past Medical History - General Information source: Patient - Social History Smoking Status: Never Smoker Cigarette use (# per day): No Chew tobacco use (# tins/day): No Frequency of alcohol use: None Drug Abuse: None Lives with: Family Family History: Reviewed & Not Pertinent, Hypertension Patient has homicidal ideation: No - Past Medical History Cardiac Medical History: Reports: Hx Atrial Fibrillation, Hx Hypertension Pulmonary Medical History: Reports: Hx Asthma - ALBUTEROL RESCUE INHALER PRN Malignancy Medical History: Reports Hx Skin Cancer GI Medical History: Reports: Hx Gastroesophageal Reflux Disease Musculoskeletal Medical History: Reports Hx Arthritis Past Surgical History: Reports: Hx Cholecystectomy, Hx Orthopedic Surgery - hip replacement, Hx Pacemaker - Immunizations Hx Diphtheria, Pertussis, Tetanus Vaccination: No Hx Pneumococcal Vaccination: 10/01/14 Review of Systems - Review of Systems Constitutional: denies: Fever EENT: No symptoms reported Cardiovascular: No symptoms reported Respiratory: See HPI, Cough - non-productive, Short of breath Gastrointestinal: See HPI, Nausea. denies: Vomiting Genitourinary: No symptoms reported Male Genitourinary: No symptoms reported Musculoskeletal: See HPI, Leg swelling Skin: No symptoms reported Hematologic/Lymphatic: No symptoms reported Neurological/Psychological: No symptoms reported -: Yes All other systems reviewed and negative Physical Exam - Vital signs Vitals: Resp 04/17/20 11:14 - Notes Notes: Physical Exam: General: Alert, appears age appropriate. HEENT: Normocephalic. Atraumatic. PERRL. Extraocular movements intact. Oropharynx clear. Neck: Supple. Non-tender. Respiratory: No respiratory distress. Clear and equal breath sounds bilaterally. Saturating 97% on room air. Cardiovascular: Regular rate and rhythm. Abdominal: Normal Inspection. Non-tender. No distension. Normal Bowel Sounds. Back: No gross abnormalities. Extremities: Moves all four extremities. Upper extremities: Normal inspection. Normal ROM. Lower extremities: 1+ lower extremity edema bilaterally. Normal ROM. Neurological: Normal cognition. AAOx4. Normal speech. Psychological: Normal affect. Normal Mood. Skin: Warm. Dry. Normal color. Course - Re-evaluation Re-evalutation: 04/17/20 18:07 Room air blood gas was obtained showing a pH of 7.45, PCO2 43.7, and a PO2 of 60.8 with O2 saturation 92.2 the lab reports that it was on a FiO2 of 2 L, however it was actually done on room air. The patient was discussed several times with Dr. River, he feels based on the patient's current symptomatology, and blood gas that he would be better served staying at home in isolation and only return if his respiratory status declined. 04/17/20 18:25 The lab is here at this time to draw the patient's PT INR. It appears that they have canceled the test on 3 separate occasions throughout this afternoon and evening. They did run it once. I am now told that they are concerned the value they did report, was actually run on the wrong patient. They did cancel one of the draws that was done after the value was reported and they wanted to repeat it. I have never received an explanation for why this is been dragging on all afternoon and into the evening. - Vital Signs Vital signs: Temp Pulse Resp BP Pulse Ox 98.4 F 15 167/92 H 92 04/17/20 14:53 04/17/20 17:31 04/17/20 17:31 04/17/20 17:31 - Laboratory Result Diagrams: 04/17/20 11:26 04/17/20 11:26 Laboratory results interpreted by me: 04/17/20 04/17/20 04/17/20 11:26 11:26 12:21 MCV 98 H RDW 23.5 H Plt Count 461 H Lymph % (Auto) 9.1 L Seg Neutrophils % 82.2 H PT ABG pO2 ABG HCO3 ABG Total CO2 ABG O2 Saturation Carbon Dioxide 31 H BUN 37 H Creatinine 1.37 H Est GFR ( Amer) 59 L Est GFR (MDRD) Non-Af 49 L Glucose 112 H Alkaline Phosphatase 144 H Albumin 3.2 L Urine Blood LARGE H 04/17/20 04/17/20 14:20 17:24 MCV RDW Plt Count Lymph % (Auto) Seg Neutrophils % PT 20.8 H ABG pO2 60.8 L ABG HCO3 29.4 H ABG Total CO2 30.8 H ABG O2 Saturation 92.2 L Carbon Dioxide BUN Creatinine Est GFR ( Amer) Est GFR (MDRD) Non-Af Glucose Alkaline Phosphatase Albumin Urine Blood - Diagnostic Test Radiology reviewed: Image reviewed, Reports reviewed - Chest x-ray does not show acute cardiopulmonary changes. There is some hyperexpansion, and chronic ch anges in the left lung base. - EKG Interpretation by Me EKG shows normal: [place], Intervals, QRS Complexes, ST-T Waves Rate: Normal Rhythm: Other - A-V Dual-Paced complexes When compared to previous EKG there are: No significant change Discharge - Discharge Clinical Impression: Anticoagulated on Coumadin, Shortness of breath with exposure to COVID-19 virus, Lab test positive for detection of COVID-19 virus Condition: Stable Disposition: HOME, SELF-CARE Additional Instructions: Your chest x-ray does not show any pneumonia today. A room air arterial blood gas shows that your oxygen levels are satisfactory at this time. You should continue all of your regular medications you take at home. Be sure to drink plenty of fluids and stay well-hydrated. Take Tylenol for fever if needed. Return to the emergency room if you have any worsening of your respiratory symptoms. RETURN TO THE EMERGENCY ROOM IF ANY NEW OR WORSENING SYMPTOMS. Referrals: CASSIDY CARDOSO MD [Primary Care Provider] - Follow up as needed I personally performed the services described in the documentation, reviewed and edited the documentation which was dictated to the scribe in my presence, and it accurately records my words and actions.
--- NOTE | 2020-04-17 13:08 | EKG REPORT ---
SEVERITY:- ABNORMAL ECG - A-V DUAL-PACED COMPLEXES : Confirmed by: Patrice Shaikh MD 17-Apr-2020 13:08:07
[2020-04-17 14:45] LABS: INTERNATIONAL RATION (INR) 1.76; PROTHROMBIN TIME 20.8 SEC (11.4-15.4)
[2020-04-17 17:47] LABS: ARTERIAL BLOOD BASE EXCESS 4.7 mmol/L; ARTERIAL BLOOD FIO2 2L; ARTERIAL BLOOD H2CO3 1.32 mmol/L (1.05-1.35); ARTERIAL BLOOD HCO3 29.4 mmol/L (20-24); ARTERIAL BLOOD O2 SATURATION 92.2 % (94-98); ARTERIAL BLOOD PCO2 43.7 mmHg (35-45); ARTERIAL BLOOD PH 7.45 (7.35-7.45); ARTERIAL BLOOD PO2 60.8 mmHg (80-100); ARTERIAL BLOOD TOTAL CO2 30.8 mmol/L (23-27)
[2020-04-17 18:54] VITALS: BP 163/90
[2020-04-17 19:22] LABS: PARTIAL THROMBOPLASTIN TIME 68.1 SEC (23.5-35.8)
[2020-04-17 19:29] LABS: INTERNATIONAL RATION (INR) 6.52; PROTHROMBIN TIME 59.1 SEC (11.4-15.4)
--- NOTE | 2020-04-17 19:40 | ER Document Report ---
Doctor's Note Notes: 04/17/20 19:39 I was notified by nursing, after the patient had been discharged, that the patient had a critical INR of 6.52. I attempted to call the patient's home phone number. I was notified via recording that voicemail had not been set up. I called another phone number listed on the demographics, no one answers. I did see this patient several days before. He did have the ability to check his INR at home. I believe at this point his risk is minimal, given his normal hemoglobin. I will continue to try to contact the patient, make him aware of the fact that he should stop his Coumadin for at least 3 days, recheck his INR, and contact his primary care physician for further directions.
--- NOTE | 2020-04-18 07:52 | ER Document Report ---
Doctor's Note Notes: 04/18/20 07:50 I learned this morning that the patient's PT/INR finally came back long after he was discharged. The INR was 6.52. I called the patient at home on his [phone] cell phone number and spoke with him. He states he did not take his Coumadin last night and he normally takes it at nighttime. He states his breathing today is doing okay but he just feels weak. He is not going to take the Coumadin tonight, and return to the emergency room tomorrow morning for me to recheck him, his breathing, and his bleeding time. He is to return to the emergency room anytime if his breathing starts to get worse before tomorrow morning.
== END 2020-04-17 19:30 | disposition home or self-care (01) ==
LOC: ER 11:07
DX: U07.1 COVID-19 (principal); R06.02 Shortness of breath; R50.9 Fever, unspecified; I48.91 Unspecified atrial fibrillation; I10 Essential (primary) hypertension; Z88.6 Allergy status to analgesic agent; Z79.02 Long term (current) use of antithrombotics/antiplatelets; Z90.49 Acquired absence of other specified parts of digestive tract
CPT/HCPCS: 93005; 99285; 96374; 36415; 87040; 82803; 85025; 85610; 85730; 80053; 81001; 71045; 93010; J2405

== ENCOUNTER 2020-04-19 09:41 | Emergency (ER) | payer MEDICARE ==
[2020-04-19 10:37] LABS: ABSOLUTE BASOPHILS # (AUTO) 0.1 10^3/uL (0.0-0.2); ABSOLUTE EOSINOPHILS # (AUTO) 0.1 10^3/uL (0.0-0.6); ABSOLUTE LYMPHOCYTES (AUTO) 1.1 10^3/uL (0.5-4.7); ABSOLUTE MONOCYTES (AUTO) 0.6 10^3/uL (0.1-1.4); ABSOLUTE NEUT (AUTO) 5.4 10^3/uL (1.7-8.2); BASOPHILS % (AUTO) 1.5 % (0-2); EOSINOPHILS % (AUTO) 0.8 % (0-6); HEMATOCRIT 43.9 % (37.9-51.0); HEMOGLOBIN 14.3 g/dL (13.5-17.0); LYMPHOCYTES % (AUTO) 15.5 % (13-45); MEAN CORPUSCULAR HEMOGLOBIN 32.2 pg (27.0-33.4); MEAN CORPUSCULAR HGB CONC 32.7 g/dL (32.0-36.0); MEAN CORPUSCULAR VOLUME 99 fl (80-97); PLATELET COUNT 488 10^3/uL (150-450); RED BLOOD COUNT 4.45 10^6/uL (4.35-5.55); RED CELL DISTRIBUTION WIDTH 23.4 % (11.5-14.0); SEGMENTED NEUTROPHILS % (AUTO) 74.2 % (42-78); TOTAL CELLS COUNTED % (AUTO) 100 %; WHITE BLOOD COUNT 7.3 10^3/uL (4.0-10.5)
[2020-04-19 10:41] LABS: ALBUMIN 3.1 g/dL (3.5-5.0); ALKALINE PHOSPHATASE 132 U/L (38-126); ANION GAP 6 (5-19); ASPARTATE AMINO TRANSFERASE 46 U/L (17-59); BILIRUBIN,DIRECT 0.2 mg/dL (0.0-0.4); BILIRUBIN,TOTAL 0.7 mg/dL (0.2-1.3); BLOOD UREA NITROGEN 35 mg/dL (7-20); CALCIUM 8.7 mg/dL (8.4-10.2); CARBON DIOXIDE 29 mmol/L (22-30); CHLORIDE 104 mmol/L (98-107); GLUCOSE 125 mg/dL (75-110); TOTAL PROTEIN 6.6 g/dL (6.3-8.2)
--- NOTE | 2020-04-19 10:42 | ER Document Report ---
Entered by ISABELLA SANTOS SCRIBE 04/19/20 1012 Acting as scribe for:DEION MATHIS MD ED General - General Chief Complaint: Abnormal Lab Results Stated Complaint: ABNORMAL LABS Primary Care Provider: CASSIDY CARDOSO MD [Primary Care Provider] - Follow up as needed Mode of Arrival: Ambulatory Information source: Patient Notes: This 89-year-old male patient presents to the emergency department today for a PT/INR lab repeat and overall re-evaluation. This patient was here on 04/17 and was found to have an INR of 6.52. Patient was tested for COVID-19 on April 06 which was positive. Patient states his cough and shortness of breath have gotten better since his last visit here two days ago. TRAVEL OUTSIDE OF THE [place] IN LAST 30 DAYS: No - Related Data Allergies/Adverse Reactions: codeine [Codeine] Adverse Reaction (Verified 04/17/20 11:34) N/V morphine [Morphine] Adverse Reaction (Verified 04/17/20 11:34) NAUSEA AND VOMITING Past Medical History - General Information source: Patient - Social History Smoking Status: Never Smoker Cigarette use (# per day): No Frequency of alcohol use: None Drug Abuse: None Lives with: Family Family History: Reviewed & Not Pertinent, Hypertension - Past Medical History Cardiac Medical History: Reports: Hx Atrial Fibrillation, Hx Hypertension Pulmonary Medical History: Reports: Hx Asthma - ALBUTEROL RESCUE INHALER PRN Malignancy Medical History: Reports Hx Skin Cancer GI Medical History: Reports: Hx Gastroesophageal Reflux Disease Musculoskeletal Medical History: Reports Hx Arthritis Past Surgical History: Reports: Hx Cardiac Surgery - pacemaker placement, Hx Cholecystectomy, Hx Orthopedic Surgery - hip replacement, Hx Pacemaker - Immunizations Hx Diphtheria, Pertussis, Tetanus Vaccination: No Hx Pneumococcal Vaccination: 07/02/14 Review of Systems - Review of Systems Constitutional: No symptoms reported EENT: No symptoms reported Cardiovascular: No symptoms reported Respiratory: No symptoms reported Gastrointestinal: No symptoms reported Genitourinary: No symptoms reported Male Genitourinary: No symptoms reported Musculoskeletal: No symptoms reported Skin: No symptoms reported Hematologic/Lymphatic: No symptoms reported Neurological/Psychological: No symptoms reported -: Yes All other systems reviewed and negative Physical Exam - Vital signs Vitals: Temp Pulse Resp BP Pulse Ox 98.3 F 83 20 147/77 H 95 04/19/20 09:43 04/19/20 09:43 04/19/20 09:43 04/19/20 09:43 04/19/20 09:43 - Notes Notes: Physical Exam: General: Alert, appears well and much stronger today than his previous visit. HEENT: Normocephalic. Atraumatic. PERRL. Extraocular movements intact. Oropharynx clear. Neck: Supple. Non-tender. Respiratory: No respiratory distress. Wheezing and slight rhonchi bilaterally. Cardiovascular: Regular rate and rhythm. Abdominal: Normal Inspection. Non-tender. No distension. Normal Bowel Sounds. Back: No gross abnormalities. Extremities: Moves all four extremities. Upper extremities: Normal inspection. Normal ROM. Lower extremities: Normal inspection. No edema. Normal ROM. Neurological: Normal cognition. AAOx4. Normal speech. Psychological: Normal affect. Normal Mood. Skin: Warm. Dry. Normal color. Course - Re-evaluation Re-evalutation: 04/19/20 11:55 The lab had reported an INR of 6.52 on 04/17/2020 after the patient had been discharged home. I had him come back today to repeat the testing. He tells me he did not take Coumadin on the night of the or the . The first INR checked today about 10 AM was 7.59, due to this not making sense, 1 hour later he was redrawn and the value was reported at 8.0 I am going to have the lab come back and redraw the patient again in 1 hour and see if this is a true representation of his INR. 04/19/20 16:08 About 1330 a third INR was done and the reading was 7.62 He was given 2 mg of vitamin K orally. He was advised to not take his Coumadin tonight. He was also advised to stop taking the doxycycline in case that was causing the INR to increase. He is to call his primary care provider tomorrow morning to report all of these INR findings, and discussed when to start back on his Coumadin and doxycycline. I did discuss with the patient the fact that he has an A-V dual-Paced pacemaker, and he should discuss whether the relative risk for continuing Coumadin can be justified at this point in his life. Or if perhaps he could at least decrease the dose and have his INR in the 1.5-2.0 range rather than the 2.0-3.0 range he is currently shooting for. - Vital Signs Vital signs: Temp Pulse Resp BP Pulse Ox 98.4 F 78 19 136/78 H 98 04/19/20 11:04 04/19/20 14:36 04/19/20 14:36 04/19/20 14:36 04/19/20 14:36 - Laboratory Result Diagrams: 04/19/20 09:55 04/19/20 09:55 Laboratory results interpreted by me: 04/19/20 04/19/20 04/19/20 09:55 09:55 11:09 MCV 99 H RDW 23.4 H Plt Count 488 H PT 69.7 H* INR 8.00 H* BUN 35 H Creatinine 1.32 H Est GFR (MDRD) Non-Af 51 L Glucose 125 H Alkaline Phosphatase 132 H Albumin 3.1 L 04/19/20 13:28 MCV RDW Plt Count PT 67.0 H* INR 7.62 H* BUN Creatinine Est GFR (MDRD) Non-Af Glucose Alkaline Phosphatase Albumin Discharge - Discharge Clinical Impression: COVID-19, Excessive anticoagulation Condition: Stable Disposition: HOME, SELF-CARE Additional Instructions: Your INR today remains elevated, it was 7.62 On Monday it was 6.25 Since you have not been taking your Coumadin, the only explanation I can find is that the Doxycycline may have caused the bleeding time to go higher. You were given a 2mg dose of vitamin K which will help correct your bleeding time. Do not take your Coumadin tonight. Stop taking the doxycycline for now. Call Dr. Cardoso tomorrow and explain to him that your INR on Monday was 6.52, you did not take your Coumadin Monday night or Monday night, yet the INR increased to 7.59 on Monday. He can advise you about when to resume taking the Coumadin and the Doxycycline. RETURN TO THE EMERGENCY ROOM IF ANY NEW OR WORSENING SYMPTOMS. Referrals: CASSIDY CARDOSO MD [Primary Care Provider] - Follow up as needed I personally performed the services described in the documentation, reviewed and edited the documentation which was dictated to the scribe in my presence, and it accurately records my words and actions.
[2020-04-19 11:45] LABS: PROTHROMBIN TIME 69.7 SEC (11.4-15.4)
[2020-04-19 13:59] LABS: INTERNATIONAL RATION (INR) 7.62
[2020-04-19] MEDS ORDERED: PHYTONADIONE INJ 10 MG/1 ML AMPULE PO ONE (14:17)
[2020-04-19 14:37] VITALS: BP 136/78
== END 2020-04-19 15:12 | disposition home or self-care (01) ==
LOC: ER 09:41
DX: R79.1 Abnormal coagulation profile (principal); U07.1 COVID-19; I10 Essential (primary) hypertension; J45.909 Unspecified asthma, uncomplicated; Z95.0 Presence of cardiac pacemaker
CPT/HCPCS: 99282; 36415; 85025; 85610; 80053; J3430

== ENCOUNTER 2020-04-21 09:49 | Emergency (ER) | payer MEDICARE ==
[2020-04-21 10:01] VITALS: BP 104/61
[2020-04-21 11:29] LABS: INTERNATIONAL RATION (INR) 2.12
[2020-04-21 11:37] LABS: PROTHROMBIN TIME 24.1 SEC (11.4-15.4)
--- NOTE | 2020-04-21 11:45 | ER Document Report ---
HPI - HPI Time Seen by Provider: 04/21/20 10:33 Pain Level: Denies Context: Patient is an 89-year-old male who presents the emergency department to have his labs rechecked. Patient was seen here in the emergency departmentOn April 17 and his INR was 6.52. He then had his labs redrawn 2 days later and his INR was 8. He was given vitamin K and his INR dropped down to 7.62. Patient has not been taking his doxycycline or Coumadin. His INR is now 2.12. He has not restarted his Coumadin. He did not follow-up with his primary care provider. - CONSTITUTIONAL Constitutional: DENIES: Fever, Chills - NEURO Neurology: REPORTS: Weakness - Chronic. DENIES: Headache - CARDIOVASCULAR Cardiovascular: DENIES: Chest pain - RESPIRATORY Respiratory: DENIES: Trouble Breathing, Coughing - GASTROINTESTINAL Gastrointestinal: DENIES: Abdominal Pain, Nausea - REPRODUCTIVE Reproductive: DENIES: : - DERM Skin Color: Normal Skin Problems: None Past Medical History - General Information source: Patient - Social History Smoking Status: Former Smoker Family History: Reviewed & Not Pertinent, Hypertension - Past Medical History Cardiac Medical History: Reports: Hx Atrial Fibrillation, Hx Hypertension Denies: Hx Congestive Heart Failure, Hx DVT, Hx Heart Attack, Hx Hypercholesterolemia, Hx Pulmonary Embolism Pulmonary Medical History: Reports: Hx Asthma - ALBUTEROL RESCUE INHALER PRN Neurological Medical History: Denies: Hx Cerebrovascular Accident, Hx Seizures Endocrine Medical History: Denies: Hx Diabetes Mellitus Type 1, Hx Diabetes Mellitus Type 2, Hx Hyperthyroidism, Hx Hypothyroidism Malignancy Medical History: Reports Hx Skin Cancer GI Medical History: Reports: Hx Gastroesophageal Reflux Disease. Denies: Hx Cirrhosis, Hx Hepatitis, Hx Hiatal Hernia, Hx Ulcer Musculoskeletal Medical History: Reports Hx Arthritis Skin Medical History: Denies Hx Eczema, Denies Hx Psoriasis Psychiatric Medical History: Denies: Hx Depression Infectious Medical History: Denies: Hx Hepatitis Past Surgical History: Reports: Hx Cardiac Surgery - pacemaker placement, Hx Cholecystectomy, Hx Orthopedic Surgery - hip replacement, Hx Pacemaker. Denies: Hx Open Heart Surgery - Immunizations Hx Diphtheria, Pertussis, Tetanus Vaccination: No Hx Pneumococcal Vaccination: 07/02/14 Vertical Provider Document - CONSTITUTIONAL Agree With Documented VS: Yes Exam Limitations: No Limitations General Appearance: No Apparent Distress - INFECTION CONTROL TRAVEL OUTSIDE OF THE [place] IN LAST 30 DAYS: No - HEENT HEENT: Atraumatic, Normocephalic - NECK Neck: Normal Inspection - RESPIRATORY Respiratory: No Respiratory Distress - CARDIOVASCULAR Cardiovascular: Regular Rate, Regular Rhythm Pulses: Normal: Radial - MUSCULOSKELETAL/EXTREMETIES Musculoskeletal/Extremeties: FROM - NEURO Level of Consciousness: Awake, Alert, Appropriate Motor/Sensory: No Motor Deficit, No Sensory Deficit - DERM Integumentary: Warm, Dry, No Rash Course - Re-evaluation Re-evalutation: 04/21/20 12:10 Patient's INR is 2.12, which is subtherapeutic for mechanical heart valve. Instructed the patient to start taking his Coumadin. He is in agreement with this plan. Patient is anxious to get out of the emergency department. Patient was given discharge instructions. Follow-up precautions were given. Verbal discharge instructions were given to the patient. They verbalized understanding. They are stable for discharge. - Vital Signs Vital signs: Temp Pulse Resp BP Pulse Ox 97.9 F 79 20 104/61 92 04/21/20 09:57 04/21/20 09:57 04/21/20 09:57 04/21/20 09:57 04/21/20 09:57 - Laboratory Laboratory results interpreted by me: 04/21/20 10:40 PT 24.1 H D Discharge - Discharge Clinical Impression: Anticoagulation monitoring, INR range 2.5-3.5 Condition: Stable Disposition: HOME, SELF-CARE Additional Instructions: You were seen today in the emergency department to have your INR checked. Your INR is 2.12. Please restart your Coumadin. Follow-up with your primary care provider tomorrow in regards to this visit. Referrals: CASSIDY CARDOSO MD [Primary Care Provider] - Follow up tomorrow
== END 2020-04-21 12:16 | disposition home or self-care (01) ==
LOC: ER 09:49
DX: R79.89 Other specified abnormal findings of blood chemistry (principal); R53.1 Weakness; I48.91 Unspecified atrial fibrillation; I10 Essential (primary) hypertension; Z95.0 Presence of cardiac pacemaker
CPT/HCPCS: 36415; 85610; 99283

== ENCOUNTER 2020-05-14 06:55 | Inpatient (IN) | payer MEDICARE ==
[2020-05-14 08:06] LABS: VENOUS BLOOD BASE EXCESS 1.3 mmol/L; VENOUS BLOOD HCO3 27.7 mmol/L (20-32); VENOUS BLOOD PCO2 50.9 mmHg (35-63); VENOUS BLOOD PH 7.35 (7.30-7.42)
[2020-05-14 08:10] LABS: INTERNATIONAL RATION (INR) 2.65; PROTHROMBIN TIME 28.2 SEC (11.4-15.4)
--- NOTE | 2020-05-14 08:47 | RADIOLOGY REPORT (SQ) ---
EXAM DESCRIPTION: CHEST SINGLE VIEW IMAGES COMPLETED DATE/TIME: 05/14/2020 7:54 am REASON FOR STUDY: sob COMPARISON: 04/17/2020 EXAM PARAMETERS: NUMBER OF VIEWS: One view. TECHNIQUE: Single frontal radiographic view of the chest acquired. RADIATION DOSE: NA LIMITATIONS: None. FINDINGS: LUNGS AND PLEURA: No opacities, masses or pneumothorax. No pleural effusion. MEDIASTINUM AND HILAR STRUCTURES: No masses. Contour normal. HEART AND VASCULAR STRUCTURES: Stable in appearance. No failure. BONES: No acute findings. HARDWARE: Battery pack and leads are in place. OTHER: No other significant finding. IMPRESSION: NO ACUTE RADIOGRAPHIC FINDING IN THE CHEST. TECHNICAL DOCUMENTATION: JOB ID: [id number] 2010 [employer]- All Rights Reserved Reading location - IP/workstation name: [email or web address]
[2020-05-14 08:59] LABS: ABSOLUTE LYMPHOCYTES (AUTO) 0.8 10^3/uL (0.5-4.7); ABSOLUTE MONOCYTES (AUTO) 0.6 10^3/uL (0.1-1.4); ABSOLUTE NEUT (AUTO) 6.4 10^3/uL (1.7-8.2); BASOPHILS % (AUTO) 0.1 % (0-2); EOSINOPHILS % (AUTO) 0.6 % (0-6); HEMATOCRIT 38.6 % (37.9-51.0); LYMPHOCYTES % (AUTO) 9.9 % (13-45); MEAN CORPUSCULAR HEMOGLOBIN 35.7 pg (27.0-33.4); MEAN CORPUSCULAR HGB CONC 33.6 g/dL (32.0-36.0); MONOCYTES % (AUTO) 7.8 % (3-13); PLATELET COUNT 251 10^3/uL (150-450); RED BLOOD COUNT 3.63 10^6/uL (4.35-5.55); RED CELL DISTRIBUTION WIDTH 24.1 % (11.5-14.0); SEGMENTED NEUTROPHILS % (AUTO) 81.6 % (42-78); TOTAL CELLS COUNTED % (AUTO) 100 %; WHITE BLOOD COUNT 7.8 10^3/uL (4.0-10.5)
[2020-05-14 09:07] LABS: MEAN CORPUSCULAR VOLUME 106 fl (80-97)
[2020-05-14 09:14] LABS: ALBUMIN 3.1 g/dL (3.5-5.0); ALKALINE PHOSPHATASE 86 U/L (38-126); ASPARTATE AMINO TRANSFERASE 37 U/L (17-59); BILIRUBIN,TOTAL 0.8 mg/dL (0.2-1.3); BLOOD UREA NITROGEN 28 mg/dL (7-20); CALCIUM 8.3 mg/dL (8.4-10.2); GLUCOSE 102 mg/dL (75-110); POTASSIUM 4.6 mmol/L (3.6-5.0); TOTAL PROTEIN 6.1 g/dL (6.3-8.2)
[2020-05-14 09:19] LABS: ANION GAP 2 (5-19); CARBON DIOXIDE 28 mmol/L (22-30); CHLORIDE 110 mmol/L (98-107)
[2020-05-14 09:47] LABS: ANISOCYTOSIS 3+; POIKILOCYTOSIS SLIGHT; POLYCHROMASIA SLIGHT
[2020-05-14 09:48] LABS: OVALOCYTES SLIGHT; PLATELET COMMENT ADEQUATE; SCHISTOCYTES SLIGHT; STOMATOCYTES SLIGHT; TEAR DROP CELLS SLIGHT
--- NOTE | 2020-05-14 10:30 | RADIOLOGY REPORT (SQ) ---
EXAM DESCRIPTION: CTA CHEST IMAGES COMPLETED DATE/TIME: 05/14/2020 10:05 am REASON FOR STUDY: hx covid/sob COMPARISON: None. TECHNIQUE: CT scan of the chest performed using helical scanning technique with dynamic intravenous contrast injection. Images reviewed with lung, soft tissue and bone windows. Reconstructed coronal and sagittal MPR images reviewed. Additional 3 dimensional post-processing performed to develop Maximal Intensity Projection images (AR P). All images stored on PACS. All CT scanners at this facility use dose modulation, iterative reconstruction, and/or weight based d osing when appropriate to reduce radiation dose to as low as reasonably achievable (ALARA). [facility]: Dose Right [facility]: CareDose [facility]: Dose Right [facility]: Teradose 4D [facility]: [employer] CONTRAST TYPE AND DOSE: contrast/concentration: Isovue 350.00 mmol/ml; Total Contrast Delivered: 70. 0 ml; Total Saline Delivered: 69.9 ml Contrast bolus optimized for the pulmonary arteries. Not diagnostic for the aorta. RENAL FUNCTION: GFR > 60. RADIATION DOSE: CT Rad equipment meets quality standard of care and radiation dose reduction techniq ues were employed. CTDIvol: 9.9 - 24.4 mGy. DLP: 904 mGy-cm. . LIMITATIONS: None. FINDINGS: LUNGS AND PLEURA: Subtle patchy ground-glass attenuation in both upper lobes. No infiltra te. Dependent subsegmental airspace disease in the lower lobes most consistent with atelectasis. AORTA AND GREAT VESSELS: No aneurysm. Contrast bolus not optimized for the aorta. HEART: No pericardial effusion. Pacemaker. PULMONARY ARTERIES: No emboli visualized in the main pulmonary arteries or the segmental branches. HILAR AND MEDIASTINAL STRUCTURES: No identified masses or abnormal nodes. HARDWARE: None in the chest. UPPER ABDOMEN: No significant findings. Limited exam. THYROID AND OTHER SOFT TISSUES: No masses. No adenopathy. BONES: No acute or significant finding. 3D MIPS: Confirm above findings. OTHER: No other significant finding. IMPRESSION: Bilateral upper lobe ground-glass opacities consistent with pneumonia. COMMENT: Commonly reported imaging features of COVID-19 pneumonia are present. Other processes suc h as influenza pneumonia and organizing pneumonia, as can be seen with drug toxicity and connective t issue disease, can cause a similar imaging pattern. [facility] Quality ID # [id number]: Final reports with documentation of one or more dose reduction techniques (e.g., Au tomated exposure control, adjustment of the mA and/or kV according to patient size, use of iterative reconstruction technique) TECHNICAL DOCUMENTATION: JOB ID: [id number] 2010 [employer]- All Rights Reserved Reading location - IP/workstation name: [email or web address]
[2020-05-14] MEDS ORDERED: AZITHROMYCIN 250 MG TABLET PO ONE (11:11)
[2020-05-14] MEDS ORDERED: CEFTRIAXONE 2 GM/D5W RTU 2 GM/50 ML RTUPB IV ONE (11:11)
--- NOTE | 2020-05-14 11:20 | ER Document Report ---
ED General - General Chief Complaint: Shortness Of Breath Stated Complaint: DIFFICULTY BREATHING Time Seen by Provider: 05/14/20 07:17 Primary Care Provider: CASSIDY CARDOSO MD [Primary Care Provider] - Follow up as needed Mode of Arrival: Ambulatory Information source: Patient TRAVEL OUTSIDE OF THE [place] IN LAST 30 DAYS: No - HPI Notes: Patient arrives stating that he feels short of breath. He states that this started yesterday and that he was unable to sleep last night. He denies pain anywhere. He states shortness of breath is worse with exertion and better with rest. It is constant. It is moderate in intensity. It obviously does not radiate. He states that he had a positive COVID test on April 06. He states he is not recently had any kind of fever. No vomiting or diarrhea. - Related Data Allergies/Adverse Reactions: codeine [Codeine] Adverse Reaction (Verified 04/17/20 11:34) N/V morphine [Morphine] Adverse Reaction (Verified 04/17/20 11:34) NAUSEA AND VOMITING Past Medical History - General Information source: Patient - Social History Smoking Status: Never Smoker Chew tobacco use (# tins/day): No Frequency of alcohol use: None Drug Abuse: None Family History: Reviewed & Not Pertinent, Hypertension Patient has homicidal ideation: No - Past Medical History Cardiac Medical History: Reports: Hx Atrial Fibrillation, Hx Hypertension Denies: Hx Congestive Heart Failure, Hx DVT, Hx Heart Attack, Hx Hypercholesterolemia, Hx Pulmonary Embolism Pulmonary Medical History: Reports: Hx Asthma - ALBUTEROL RESCUE INHALER PRN Neurological Medical History: Denies: Hx Cerebrovascular Accident, Hx Seizures Endocrine Medical History: Denies: Hx Diabetes Mellitus Type 1, Hx Diabetes Mellitus Type 2, Hx Hyperthyroidism, Hx Hypothyroidism Malignancy Medical History: Reports Hx Skin Cancer GI Medical History: Reports: Hx Gastroesophageal Reflux Disease. Denies: Hx Cirrhosis, Hx Hepatitis, Hx Hiatal Hernia, Hx Ulcer Musculoskeletal Medical History: Reports Hx Arthritis Skin Medical History: Denies Hx Eczema, Denies Hx Psoriasis Psychiatric Medical History: Denies: Hx Depression Infectious Medical History: Denies: Hx Hepatitis Past Surgical History: Reports: Hx Cardiac Surgery - pacemaker placement, Hx Cholecystectomy, Hx Orthopedic Surgery - hip replacement, Hx Pacemaker. Denies: Hx Open Heart Surgery - Immunizations Hx Diphtheria, Pertussis, Tetanus Vaccination: No Hx Pneumococcal Vaccination: 07/02/14 Review of Systems - Review of Systems Constitutional: Malaise. denies: Chills, Fever Cardiovascular: denies: Chest pain, Palpitations Respiratory: Cough - Mild, Short of breath -: Yes All other systems reviewed and negative Physical Exam - Vital signs Vitals: Temp Pulse Resp BP Pulse Ox 98.6 F 74 24 H 153/71 H 93 05/14/20 06:57 05/14/20 06:57 05/14/20 06:57 05/14/20 06:57 05/14/20 06:57 Interpretation: Hypertensive - General General appearance: Appears well, Alert - HEENT Head: Normocephalic, Atraumatic Eyes: Normal Pupils: PERRL - Respiratory Respiratory status: No respiratory distress Chest status: Nontender Breath sounds: Normal Chest palpation: Normal - Cardiovascular Rhythm: Regular Heart sounds: Normal auscultation Murmur: No - Abdominal Inspection: Normal Distension: No distension Bowel sounds: Normal Tenderness: Nontender Organomegaly: No organomegaly - Back Back: Normal, Nontender - Extremities General upper extremity: Normal inspection, Nontender, Normal color, Normal ROM, Normal temperature General lower extremity: Normal inspection, Nontender, Normal color, Normal ROM, Normal temperature, Normal weight bearing. No: Marcelo's sign - Neurological Neuro grossly intact: Yes Cognition: Normal Orientation: AAOx4 Manav Coma Scale Eye Opening: Spontaneous [place] Coma Scale Verbal: Oriented [place] Coma Scale Motor: Obeys Commands Manav Coma Scale Total: 15 Speech: Normal Motor strength normal: LUE, RUE, LLE, RLE Sensory: Normal - Psychological Associated symptoms: Normal affect, Normal mood - Skin Skin Temperature: Warm Skin Moisture: Dry Skin Color: Normal Course - Re-evaluation Re-evalutation: 05/14/20 11:19 Patient presents with complaints of shortness of breath. He is got a mild lymphopenia and a left shift but no elevated white blood cell count. He has stable vital signs. He has no other significant laboratory abnormalities. Chest x-ray was clear however CTA of the chest shows the patient to have bilateral upper lobe groundglass pneumonia. He does have a positive COVID test from proximally 6 weeks ago. It is suspicious to possibly this is a COVID pneumonia, given the patient's age of 89 it seems most prudent to admit him for further therapy. - Vital Signs Vital signs: Temp Pulse Resp BP Pulse Ox 98.6 F 74 16 159/80 H 98 05/14/20 06:57 05/14/20 06:57 05/14/20 11:01 05/14/20 11:01 05/14/20 11:01 - Laboratory Result Diagrams: 05/14/20 08:43 05/14/20 08:43 Laboratory results interpreted by me: 05/14/20 05/14/20 05/14/20 07:35 08:43 08:43 RBC 3.63 L Hgb 13.0 L MCV 106 H D MCH 35.7 H RDW 24.1 H Lymph % (Auto) 9.9 L Seg Neutrophils % 81.6 H PT 28.2 H Chloride 110 H Anion Gap 2 L BUN 28 H Calcium 8.3 L Total Protein 6.1 L Albumin 3.1 L - Diagnostic Test Radiology reviewed: Image reviewed, Reports reviewed - EKG Interpretation by Me Rate: Normal - 70 Rhythm: Other - paced Voltage: Increased voltage When compared to previous EKG there are: No significant change Discharge - Discharge Clinical Impression: Suspected COVID-19 virus infection Pneumonia Qualifiers: Pneumonia type: due to unspecified organism Laterality: bilateral Lung location: upper lobe of lung Qualified Code(s): J18.9 - Pneumonia, unspecified organism Condition: Serious Disposition: ADMITTED INPATIENT Admitting Provider: Aleta (Hospitalist) - tereza to admit Unit Admitted: Telemetry Referrals: CASSIDY CARDOSO MD [Primary Care Provider] - Follow up as needed
[2020-05-14] MEDS ORDERED: ACETAMINOPHEN 325 MG TABLET PO PRN (12:05)
[2020-05-14] MEDS ORDERED: GUAIFENESIN SYRP 200 MG/10 ML UDC PO PRN (12:05)
[2020-05-14] MEDS ORDERED: ALBUTEROL SULFATE 0.083% NEB 2.5 MG/3 ML AMPUL NEB PRN (12:05)
[2020-05-14] MEDS: NORMAL SALINE 1000 ML 1,000 ML IV PRN (12:39)
[2020-05-14 12:49] LABS: C-REACTIVE PROTEIN < 5.0 mg/L (<10.0)
[2020-05-14 14:15] LABS: HEMATOCRIT 40.6 % (37.9-51.0); HEMOGLOBIN 13.6 g/dL (13.5-17.0); MEAN CORPUSCULAR HEMOGLOBIN 35.6 pg (27.0-33.4); MEAN CORPUSCULAR HGB CONC 33.5 g/dL (32.0-36.0); MEAN CORPUSCULAR VOLUME 106 fl (80-97); PLATELET COUNT 307 10^3/uL (150-450); RED BLOOD COUNT 3.82 10^6/uL (4.35-5.55); RED CELL DISTRIBUTION WIDTH 24.2 % (11.5-14.0); WHITE BLOOD COUNT 7.9 10^3/uL (4.0-10.5)
[2020-05-14] MEDS: ALBUTEROL SULFATE 0.083% NEB 2.5 MG/3 ML AMPUL NEB SCH ×2 (14:16→22:36)
--- NOTE | 2020-05-14 15:29 | EKG REPORT ---
SEVERITY:- ABNORMAL ECG - A-V DUAL-PACED RHYTHM WITH SOME INHIBITION : Confirmed by: Patrice Shaikh MD 14-May-2020 15:28:33
--- NOTE | 2020-05-14 16:01 | PDOC H&P ---
History of Present Illness Admission Date/PCP: 05/14/20 12:30 CASSIDY CARDOSO MD Patient complains of: Dyspnea, pleurisy History of Present Illness: GUZMAN ONEILL is a 89 year old male with a past medical history significant for fibrillation, hypertension, anticoagulated on Coumadin, dual-chamber pacemaker, BPH, GERD, and confirmed coronavirus who presented to the emergency department today with worsening dyspnea and pleurisy over the last 24 hours. Evaluation in the emergency department revealed hypertension but otherwise stable vital signs; maintaining oxygen saturations in the mid 90s on room air. He was found to have benign CBC, appropriate INR (2.65) elevated d-dimer 2.92, baseline renal function, negative troponin, and reassuring ferritin, LDH, CRP, vitamin D. Chest x-ray was negative for acute findings, however, chest CTA demonstrated bilateral groundglass opacities. He is referred to the hospitalist service for further evaluation management of the above-stated complaints findings. Past Medical History Cardiac Medical History: Reports: Atrial Fibrillation, Hypertension Denies: Congestive Heart Failure, Myocardial Infarction, Hyperlipidema Pulmonary Medical History: Reports: Asthma EENT Medical History: Reports: None Neurological Medical History: Denies: Seizures Endocrine Medical History: Denies: Diabetes Mellitus Type 1, Hypothyroidism Renal/ Medical History: Reports: None Malignancy Medical History: Reports: Skin Cancer GI Medical History: Reports: Gastroesophageal Reflux Disease Denies: Cirrhosis, Hepatitis, Hiatal Hernia Musculoskeltal Medical History: Reports: Arthritis Skin Medical History: Denies: Eczema, Psoriasis Psychiatric Medical History: Denies: Depression Hematology: Denies: Anemia, Sickle Cell Disease Infectious Medical History: Reports: Other Infectious History Note: COVID (+) Past Surgical History Past Surgical History: Reports: Cholecystectomy, Orthopedic Surgery - hip replac ement, Pacemaker Social History Information Source: Patient Lives with: Family Smoking Status: Never Smoker Electronic Cigarette use?: No Frequency of Alcohol Use: None Hx Recreational Drug Use: No Drugs: None Hx Prescription Drug Abuse: No - Advance Directive Resuscitation Status: Full Code Family History Family History: Reviewed & Not Pertinent, Hypertension Parental Family History Reviewed: Yes Children Family History Reviewed: Yes Sibling(s) Family History Reviewed.: Yes Medication/Allergy Home Medications: Dofetilide [Tikosyn] 250 mcg PO BID 10/30/12 Multivitamin [Multiple Vitamins] 1 each PO DAILY 10/30/12 Pantoprazole Sodium [Protonix] 40 mg PO BID 10/30/12 Tamsulosin HCl [Flomax 0.4 mg Cap.sr] 0.8 mg PO DAILY 10/30/12 Warfarin Sodium 5 mg PO SUTUTHSA 10/30/12 Furosemide [Lasix 20 mg Tablet] 20 mg PO QAM 10/28/14 Magnesium Oxide [Magnesium] 400 mg PO DAILY #0 capsule 10/29/14 Finasteride 5 mg PO DAILY 07/25/16 Potassium Chloride 20 meq PO DAILY 07/25/16 Warfarin Sodium [Jantoven 2.5 mg Tablet] 1 tab PO MOWEFR 07/25/16 Doxycycline Hyclate [Vibramycin 100 mg Tablet] 100 mg PO BID #13 tablet 04/06/20 Oxycodone HCl/Acetaminophen [Percocet 5-325 mg Tablet] 1 tab PO ASDIR PRN #15 tablet 04/08/20 Allergies/Adverse Reactions: codeine [Codeine] Adverse Reaction (Verified 04/17/20 11:34) N/V morphine [Morphine] Adverse Reaction (Verified 04/17/20 11:34) NAUSEA AND VOMITING Review of Systems Constitutional: PRESENT: fatigue, weakness. ABSENT: chills, fever(s), headache(s), weight gain, weight loss Eyes: ABSENT: visual disturbances Ears: ABSENT: hearing changes Cardiovascular: ABSENT: chest pain, dyspnea on exertion, edema, orthropnea, palpitations Respiratory: PRESENT: cough, dyspnea, other - Pleurisy. ABSENT: hemoptysis Gastrointestinal: ABSENT: abdominal pain, constipation, diarrhea, hematemesis, hematochezia, nausea, vomiting Genitourinary: ABSENT: dysuria, hematuria Musculoskeletal: ABSENT: joint swelling Integumentary: ABSENT: rash, wounds Neurological: ABSENT: abnormal gait, abnormal speech, confusion, dizziness, focal weakness, syncope Psychiatric: ABSENT: anxiety, depression, homidical ideation, suicidal ideation Endocrine: ABSENT: cold intolerance, heat intolerance, polydipsia, polyuria Hematologic/Lymphatic: ABSENT: easy bleeding, easy bruising Physical Exam Vital Signs: Temp Pulse Resp BP Pulse Ox 98.6 F 74 20 157/91 H 93 05/14/20 06:57 05/14/20 06:57 05/14/20 15:01 05/14/20 15:01 08/13/20 15:01 Intake & Output 05/13/20 05/14/20 05/15/20 06:59 06:59 06:59 Intake Total 50 Balance 50 Weight 104.326 kg General appearance: PRESENT: no acute distress, cooperative, well-developed, well-nourished - Overweight, other - Acutely ill-appearing Head exam: PRESENT: atraumatic, normocephalic Eye exam: PRESENT: conjunctiva pink, EOMI, PERRLA. ABSENT: scleral icterus Mouth exam: PRESENT: moist, tongue midline Respiratory exam: PRESENT: chest wall tenderness, rhonchi, tachypnea, unlabored. ABSENT: rales, wheezes Cardiovascular exam: PRESENT: irregular rhythm. ABSENT: diastolic murmur, rubs, systolic murmur Pulses: PRESENT: normal dorsalis pedis pul Vascular exam: PRESENT: normal capillary refill GI/Abdominal exam: PRESENT: normal bowel sounds, soft. ABSENT: distended, guarding, mass, organolmegaly, rebound, tenderness Rectal exam: PRESENT: deferred Extremities exam: PRESENT: full ROM. ABSENT: calf tenderness, clubbing, pedal edema Neurological exam: PRESENT: alert, awake, oriented to person, oriented to place, oriented to time, oriented to situation, CN II-XII grossly intact. ABSENT: motor sensory deficit Psychiatric exam: PRESENT: appropriate affect, normal mood. ABSENT: homicidal ideation, suicidal ideation Skin exam: PRESENT: dry, intact, warm. ABSENT: cyanosis, rash Results Laboratory Results: 05/14/20 13:56 05/14/20 08:43 05/14/20 05/14/20 05/14/20 07:35 07:35 07:35 WBC Cancelled RBC Cancelled Hgb Cancelled Hct Cancelled MCV Cancelled MCH Cancelled MCHC Cancelled RDW Cancelled Plt Count Cancelled Seg Neutrophils % Cancelled VBG pH 7.35 VBG pCO2 50.9 VBG HCO3 27.7 VBG Base Excess 1.3 Sodium Cancelled Potassium Cancelled Chloride Cancelled Carbon Dioxide Cancelled Anion Gap Cancelled BUN Cancelled Creatinine Cancelled Est GFR ( Amer) Cancelled Est GFR (Non-Af Amer) Cancelled Glucose Cancelled Lactic Acid Calcium Cancelled Ferritin Total Bilirubin Cancelled AST Cancelled Alkaline Phosphatase Cancelled C-Reactive Protein Total Protein Cancelled Albumin Cancelled 05/14/20 05/14/20 05/14/20 07:35 08:43 08:43 WBC 7.8 RBC 3.63 L Hgb 13.0 L Hct 38.6 MCV 106 H D MCH 35.7 H MCHC 33.6 RDW 24.1 H Plt Count 251 Seg Neutrophils % 81.6 H VBG pH VBG pCO2 VBG HCO3 VBG Base Excess Sodium 139.7 Potassium 4.6 Chloride 110 H Carbon Dioxide 28 Anion Gap 2 L BUN 28 H Creatinine 1.12 Est GFR ( Amer) > 60 Est GFR (Non-Af Amer) Glucose 102 Lactic Acid 1.4 Calcium 8.3 L Ferritin Total Bilirubin 0.8 AST 37 Alkaline Phosphatase 86 C-Reactive Protein Total Protein 6.1 L Albumin 3.1 L 05/14/20 05/14/20 05/14/20 10:28 11:30 13:56 WBC RBC Hgb Hct MCV MCH MCHC RDW Plt Count Seg Neutrophils % VBG pH VBG pCO2 VBG HCO3 VBG Base Excess Sodium Potassium Chloride Carbon Dioxide Anion Gap BUN Creatinine Est GFR ( Amer) Est GFR (Non-Af Amer) Glucose Lactic Acid 1.0 1.2 Calcium Ferritin 75.80 Total Bilirubin AST Alkaline Phosphatase C-Reactive Protein < 5.0 Total Protein Albumin 05/14/20 13:56 WBC 7.9 RBC 3.82 L Hgb 13.6 Hct 40.6 MCV 106 H MCH 35.6 H MCHC 33.5 RDW 24.2 H Plt Count 307 Seg Neutrophils % VBG pH VBG pCO2 VBG HCO3 VBG Base Excess Sodium Potassium Chloride Carbon Dioxide Anion Gap BUN Creatinine Est GFR ( Amer) Est GFR (Non-Af Amer) Glucose Lactic Acid Calcium Ferritin Total Bilirubin AST Alkaline Phosphatase C-Reactive Protein Total Protein Albumin 05/14/20 05/14/20 07:35 08:43 Troponin I Cancelled < 0.012 Impressions: Chest X-Ray 05/14/20 07:24 IMPRESSION: NO ACUTE RADIOGRAPHIC FINDING IN THE CHEST. Chest/Abdomen CTA 05/14/20 08:28 IMPRESSION: Bilateral upper lobe ground-glass opacities consistent with pneumonia. Assessment and Plan - Diagnosis (1) Pneumonia Qualifiers: Pneumonia type: due to unspecified organism Laterality: bilateral Lung location: upper lobe of lung Qualified Code(s): J18.9 - Pneumonia, unspecified organism Is this a current diagnosis for this admission?: Yes Plan: CTA chest shows groundglass opacities to bilateral upper lobes. Recently diagnosed COVID positive. Has had multiple ER visits due to supratherapeutic INR; raises the possibility of a healthcare associated pneumonia. Blood and sputum cultures pending. He is admitted to medical floor on continuous cardiac telemetry. He is empirically placed on IV Rocephin and azithromycin. Mucinex twice daily. Supplemental oxygen as needed. Scheduled and as needed nebulizer treatments. Encourage pulmonary toilet. (2) COVID-19 Is this a current diagnosis for this admission?: Yes Plan: Confirmed COVID-19 D-dimer elevated, however, all other supportive testing is benign. Start vitamin C, vitamin D, zinc, melatonin. Remaining management as above. (3) GERD (gastroesophageal reflux disease) Is this a current diagnosis for this admission?: Yes Plan: Continue Protonix twice daily (4) Anticoagulated on Coumadin Is this a current diagnosis for this admission?: Yes Plan: Therapeutic INR. Goal 2-3 Pharmacy to dose. (5) Atrial fibrillation Qualifiers: Is this a current diagnosis for this admission?: Yes Plan: Monitor on telemetry. Continue anticoagulation with Coumadin; pharmacy to dose. Continue home dose Tikosyn (6) BPH (benign prostatic hyperplasia) Is this a current diagnosis for this admission?: Yes Plan: Continue tamsulosin (7) History of cardiac pacemaker in situ Is this a current diagnosis for this admission?: Yes - Time Time Spent with patient: 35 or more minutes Medications reviewed and adjusted accordingly: Yes Anticipated Discharge Disposition: Home, Self Care Anticipated Discharge Timeframe: UTD Disposition: =
[2020-05-14] MEDS: PANTOPRAZOLE SODIUM 40 MG TABLET.DR PO SCH (16:58)
[2020-05-14] MEDS: GUAIFENESIN 600 MG TABLET.SA PO SCH (22:44)
[2020-05-14] MEDS: MELATONIN 3 MG TABLET PO SCH (22:44)
[2020-05-14] MEDS: DOFETILIDE 125 MCG CAPSULE PO SCH (22:45)
[2020-05-15] MEDS: ALBUTEROL SULFATE 0.083% NEB 2.5 MG/3 ML AMPUL NEB SCH ×4 (03:35→21:18)
[2020-05-15] MEDS: PANTOPRAZOLE SODIUM 40 MG TABLET.DR PO SCH ×2 (05:11→17:43)
[2020-05-15] MEDS: NORMAL SALINE 1000 ML 1,000 ML IV PRN (05:42)
[2020-05-15 06:17] LABS: ABSOLUTE BASOPHILS # (AUTO) 0.1 10^3/uL (0.0-0.2); ABSOLUTE EOSINOPHILS # (AUTO) 0.1 10^3/uL (0.0-0.6); ABSOLUTE LYMPHOCYTES (AUTO) 0.8 10^3/uL (0.5-4.7); ABSOLUTE MONOCYTES (AUTO) 0.5 10^3/uL (0.1-1.4); ABSOLUTE NEUT (AUTO) 4.9 10^3/uL (1.7-8.2); BASOPHILS % (AUTO) 1.1 % (0-2); EOSINOPHILS % (AUTO) 1.2 % (0-6); HEMATOCRIT 38.7 % (37.9-51.0); HEMOGLOBIN 13.2 g/dL (13.5-17.0); MEAN CORPUSCULAR HEMOGLOBIN 35.9 pg (27.0-33.4); MEAN CORPUSCULAR VOLUME 106 fl (80-97); MONOCYTES % (AUTO) 7.9 % (3-13); PLATELET COUNT 239 10^3/uL (150-450); RED BLOOD COUNT 3.66 10^6/uL (4.35-5.55); RED CELL DISTRIBUTION WIDTH 23.6 % (11.5-14.0); SEGMENTED NEUTROPHILS % (AUTO) 76.8 % (42-78); TOTAL CELLS COUNTED % (AUTO) 100 %; WHITE BLOOD COUNT 6.4 10^3/uL (4.0-10.5)
[2020-05-15 06:38] LABS: INTERNATIONAL RATION (INR) 2.78; PROTHROMBIN TIME 29.3 SEC (11.4-15.4)
[2020-05-15 06:40] LABS: ANION GAP 5 (5-19); BLOOD UREA NITROGEN 17 mg/dL (7-20); CALCIUM 8.3 mg/dL (8.4-10.2); CARBON DIOXIDE 23 mmol/L (22-30); CHLORIDE 110 mmol/L (98-107); GLUCOSE 104 mg/dL (75-110)
[2020-05-15] MEDS: DOFETILIDE 125 MCG CAPSULE PO SCH ×2 (11:16→21:35)
[2020-05-15] MEDS: GUAIFENESIN 600 MG TABLET.SA PO SCH ×2 (11:16→21:35)
[2020-05-15] MEDS: AZITHROMYCIN 500 MG in DEXTROSE 5%-WATER 250 ML IV SCH (11:16)
[2020-05-15] MEDS: CEFTRIAXONE 1 GM/D5W RTU 1 GM/50 ML RTUPB IV SCH (12:23)
[2020-05-15] MEDS ORDERED: LOPERAMIDE HCL 2 MG CAPSULE PO PRN (13:51)
--- NOTE | 2020-05-15 13:55 | PDOC PROGRESS REPORT ---
Subjective Progress Note for:: 05/15/20 Subjective:: GUZMAN ONEILL is a 89 year old male with a past medical history significant for fibrillation, hypertension, anticoagulated on Coumadin, dual-chamber pacemaker, BPH, GERD, and confirmed coronavirus who was admitted 05/14/2020 with Bilateral upper lobe pneumonia. Patient was seen on morning rounds. Found resting in bed, comfortably, on room air. He reports decreased dyspnea and pleurisy today. He does report continued fatigue today. Otherwise, he has no questions or concerns at this time; hopeful to discharge home within the next 1 to 2 days. He specifically denies fever, chills, chest pain, palpitations, Abdominal pain, nausea vomiting. He does admit to loose bowel movements today. No concerns per nursing. Reason For Visit: COVID PNEUMONIA Physical Exam Vital Signs: Temp Pulse Resp BP Pulse Ox 98.5 F 80 16 159/78 H 99 05/15/20 07:49 05/15/20 08:21 05/15/20 08:21 05/15/20 07:49 05/15/20 08:21 Intake & Output 05/14/20 05/15/20 05/16/20 06:59 06:59 06:59 Intake Total 1050 300 Balance 1050 300 Weight 104.326 kg 104.3 kg General appearance: PRESENT: no acute distress, cooperative, obese, well- developed, well-nourished Head exam: PRESENT: atraumatic, normocephalic Eye exam: PRESENT: conjunctiva pink, EOMI, PERRLA. ABSENT: scleral icterus Mouth exam: PRESENT: moist, tongue midline Respiratory exam: PRESENT: clear to auscultation piter, symmetrical, unlabored. ABSENT: rales, rhonchi, wheezes Cardiovascular exam: PRESENT: irregular rhythm, +S1, +S2. ABSENT: diastolic murmur, rubs, systolic murmur Pulses: PRESENT: normal dorsalis pedis pul Vascular exam: PRESENT: normal capillary refill GI/Abdominal exam: PRESENT: normal bowel sounds, soft. ABSENT: distended, guarding, mass, organolmegaly, rebound, tenderness Rectal exam: PRESENT: deferred Extremities exam: PRESENT: full ROM. ABSENT: calf tenderness, clubbing, pedal edema Neurological exam: PRESENT: alert, awake, oriented to person, oriented to place, oriented to time, oriented to situation, CN II-XII grossly intact. ABSENT: motor sensory deficit Psychiatric exam: PRESENT: appropriate affect, normal mood. ABSENT: homicidal ideation, suicidal ideation Skin exam: PRESENT: dry, intact, warm. ABSENT: cyanosis, rash Results Laboratory Results: 05/15/20 06:09 05/15/20 06:09 05/14/20 05/14/20 05/15/20 13:56 13:56 06:09 WBC 7.9 6.4 RBC 3.82 L 3.66 L Hgb 13.6 13.2 L Hct 40.6 38.7 MCV 106 H 106 H MCH 35.6 H 35.9 H MCHC 33.5 34.0 RDW 24.2 H 23.6 H Plt Count 307 239 Seg Neutrophils % 76.8 Sodium Potassium Chloride Carbon Dioxide Anion Gap BUN Creatinine Est GFR ( Amer) Glucose Lactic Acid 1.2 Calcium 05/15/20 06:09 WBC RBC Hgb Hct MCV MCH MCHC RDW Plt Count Seg Neutrophils % Sodium 137.5 Potassium 4.0 Chloride 110 H Carbon Dioxide 23 Anion Gap 5 BUN 17 Creatinine 0.95 Est GFR ( Amer) > 60 Glucose 104 Lactic Acid Calcium 8.3 L 05/14/20 05/14/20 07:35 08:43 Troponin I Cancelled < 0.012 Impressions: Chest X-Ray 05/14/20 07:24 IMPRESSION: NO ACUTE RADIOGRAPHIC FINDING IN THE CHEST. Chest/Abdomen CTA 05/14/20 08:28 IMPRESSION: Bilateral upper lobe ground-glass opacities consistent with pneumonia. Assessment and Plan - Diagnosis (1) Pneumonia Qualifiers: Pneumonia type: due to unspecified organism Laterality: bilateral Lung location: upper lobe of lung Qualified Code(s): J18.9 - Pneumonia, unspecified organism Is this a current diagnosis for this admission?: Yes Plan: CTA chest shows groundglass opacities to bilateral upper lobes. Recently diagnosed COVID positive. Has had multiple ER visits due to supratherapeutic INR; raises the possibility of a healthcare associated pneumonia. Blood cultures have no growth at 24 hrs Sputum cultures pending. He is admitted to medical floor on continuous cardiac telemetry. He was empirically placed on IV Rocephin and azithromycin. Mucinex twice daily. Supplemental oxygen as needed. Scheduled and as needed nebulizer treatments. Encourage pulmonary toilet. (2) COVID-19 Is this a current diagnosis for this admission?: Yes Plan: Confirmed COVID-19 D-dimer elevated, however, all other supportive testing is benign. Start vitamin C, vitamin D, zinc, melatonin. Remaining management as above. (3) GERD (gastroesophageal reflux disease) Is this a current diagnosis for this admission?: Yes Plan: Continue Protonix twice daily (4) Anticoagulated on Coumadin Is this a current diagnosis for this admission?: Yes Plan: Therapeutic INR. Goal 2-3 Pharmacy to dose. (5) Atrial fibrillation Qualifiers: Is this a current diagnosis for this admission?: Yes Plan: Monitor on telemetry. Continue anticoagulation with Coumadin; pharmacy to dose. Continue home dose Tikosyn (6) BPH (benign prostatic hyperplasia) Is this a current diagnosis for this admission?: Yes Plan: Continue tamsulosin (7) History of cardiac pacemaker in situ Is this a current diagnosis for this admission?: Yes - Time Time Spent with patient: 25-34 minutes Medications reviewed and adjusted accordingly: Yes Anticipated Discharge Disposition: Home, Self Care Anticipated Discharge Timeframe: within 48 hours
[2020-05-15 18:55] LABS: APPEARANCE,URINE CLEAR; BILIRUBIN,URINE NEGATIVE (NEGATIVE); COLOR,URINE YELLOW; GLUCOSE, URINE NEGATIVE (NEGATIVE); KETONES,URINE NEGATIVE (NEGATIVE); LEUKOCYTE ESTERASE,URINE NEGATIVE (NEGATIVE); NITRITE,URINE NEGATIVE (NEGATIVE); PROTEIN,URINE NEGATIVE (NEGATIVE); URINE SPECIFIC GRAVITY 1.013; UROBILINOGEN,URINE NEGATIVE mg/dL (<2.0)
[2020-05-15] MEDS: PREGABALIN 75 MG CAPSULE PO SCH (21:36)
[2020-05-15] MEDS: MELATONIN 3 MG TABLET PO SCH (21:37)
[2020-05-15] MEDS ORDERED: WARFARIN SODIUM 2 MG TABLET PO SCH (22:00)
[2020-05-15] MEDS ORDERED: (PENDING PHARMACY ID) (Pregabalin [Pregabalin] 150 MG) PO SCH (22:00)
[2020-05-16] MEDS: NORMAL SALINE 1000 ML 1,000 ML IV PRN (01:23)
[2020-05-16] MEDS: ALBUTEROL SULFATE 0.083% NEB 2.5 MG/3 ML AMPUL NEB SCH ×4 (02:23→14:27)
[2020-05-16] MEDS: PANTOPRAZOLE SODIUM 40 MG TABLET.DR PO SCH (05:37)
[2020-05-16 06:08] LABS: HEMATOCRIT 39.9 % (37.9-51.0); HEMOGLOBIN 13.1 g/dL (13.5-17.0); MEAN CORPUSCULAR HEMOGLOBIN 35.6 pg (27.0-33.4); MEAN CORPUSCULAR HGB CONC 32.8 g/dL (32.0-36.0); MEAN CORPUSCULAR VOLUME 108 fl (80-97); PLATELET COUNT 244 10^3/uL (150-450); RED BLOOD COUNT 3.68 10^6/uL (4.35-5.55); RED CELL DISTRIBUTION WIDTH 23.7 % (11.5-14.0); WHITE BLOOD COUNT 7.6 10^3/uL (4.0-10.5)
[2020-05-16 06:25] LABS: INTERNATIONAL RATION (INR) 2.54; PROTHROMBIN TIME 27.3 SEC (11.4-15.4)
[2020-05-16 06:37] LABS: BLOOD UREA NITROGEN 11 mg/dL (7-20); CALCIUM 8.4 mg/dL (8.4-10.2); CARBON DIOXIDE 24 mmol/L (22-30); CHLORIDE 111 mmol/L (98-107); GLUCOSE 99 mg/dL (75-110); POTASSIUM 3.8 mmol/L (3.6-5.0)
[2020-05-16 06:38] LABS: ANION GAP 3 (5-19)
[2020-05-16] MEDS: PREGABALIN 75 MG CAPSULE PO SCH (09:32)
[2020-05-16] MEDS: GUAIFENESIN 600 MG TABLET.SA PO SCH (09:32)
[2020-05-16] MEDS: AZITHROMYCIN 500 MG in DEXTROSE 5%-WATER 250 ML IV SCH (09:34)
[2020-05-16] MEDS: DOFETILIDE 125 MCG CAPSULE PO SCH (09:34)
[2020-05-16] MEDS ORDERED: FINASTERIDE 5 MG TABLET PO SCH (10:00)
[2020-05-16] MEDS: CEFTRIAXONE 1 GM/D5W RTU 1 GM/50 ML RTUPB IV SCH (11:49)
[2020-05-16 15:09] VITALS: BP 136/90
[2020-05-16] MEDS ORDERED: TAMSULOSIN HCL 0.4 MG CAP.SR.24H PO SCH (18:00)
--- NOTE | 2020-05-18 19:07 | PDOC DISCHARGE SUMMARY ---
Impression - Admit/DC Date/PCP Admission Date/Primary Care Provider: 05/14/20 12:30 CASSIDY CARDOSO MD Discharge Date: 05/16/20 - Discharge Diagnosis (1) Pneumonia Is this a current diagnosis for this admission?: Yes (2) COVID-19 Is this a current diagnosis for this admission?: Yes (3) GERD (gastroesophageal reflux disease) Is this a current diagnosis for this admission?: Yes (4) Anticoagulated on Coumadin Is this a current diagnosis for this admission?: Yes (5) Atrial fibrillation Is this a current diagnosis for this admission?: Yes (6) BPH (benign prostatic hyperplasia) Is this a current diagnosis for this admission?: Yes (7) History of cardiac pacemaker in situ Is this a current diagnosis for this admission?: Yes (8) Urinary retention Is this a current diagnosis for this admission?: Yes - Additional Information Resuscitation Status: Full Code Discharge Diet: As Tolerated, Cardiac Discharge Activity: Activity As Tolerated, Balance Activity w/Rest, Slowly Increase Activity Referrals: CASSIDY CARDOSO MD [Primary Care Provider] - 05/28/20 1:45 pm Prescriptions: Albuterol Sulfate [Albuterol Sulfate Hfa] 2 puff IH Q6HP PRN #1 hfa.aer.ad PRN Reason: Shortness Of Breath Azithromycin 250 mg PO DAILY #4 tablet Prednisone [Deltasone 20 mg Tablet] 20 mg PO ASDIR PRN #14 tablet PRN Reason: Tamsulosin HCl [Flomax 0.4 mg Cap.sr] 0.4 mg PO PCSUPPER #30 cap.sr.24h Cefpodoxime Proxetil [Vantin 200 mg Tablet] 200 mg PO BID #14 tablet Home Medications: Finasteride 5 mg PO DAILY 07/25/16 Hydroxyurea 500 mg PO DAILY 05/14/20 Meclizine HCl [Antivert 12.5 mg Tablet] 12.5 mg PO TIDP PRN 05/14/20 Metolazone [Zaroxolyn 2.5 mg Tablet] 2.5 mg PO .QWEEKLY 05/14/20 Nystatin [Nystop] 1 applic TOP BID 05/14/20 Pregabalin 150 mg PO Q12 05/14/20 Warfarin Sodium [Jantoven 3 mg Tablet] 3 mg PO QHS 05/14/20 Acetaminophen [Tylenol 325 mg Tablet] 650 mg PO Q4HP PRN tablet 05/16/20 Albuterol Sulfate [Albuterol Sulfate Hfa] 2 puff IH Q6HP PRN #1 hfa.aer.ad 05/16/20 Azithromycin 250 mg PO DAILY #4 tablet 05/16/20 Cefpodoxime Proxetil [Vantin 200 mg Tablet] 200 mg PO BID #14 tablet 05/16/20 Dofetilide [Tikosyn 125 Mcg Capsule] 250 mcg PO Q12 capsule 05/16/20 Guaifenesin [Robitussin Syrup 200 mg/10 ml Ud Cup] 200 mg PO Q4HP PRN udc 05/16/20 Loperamide HCl [Imodium 2 mg Capsule] 2 mg PO Q6HP PRN capsule 05/16/20 Melatonin [Melatonin 3 mg Tablet] 6 mg PO QHS tablet 05/16/20 Prednisone [Deltasone 20 mg Tablet] 20 mg PO ASDIR PRN #14 tablet 05/16/20 Tamsulosin HCl [Flomax 0.4 mg Cap.sr] 0.4 mg PO PCSUPPER #30 cap.sr.24h 05/16/20 History of Present Illiness History of Present Illness: GUZMAN ONEILL is a 89 year old male with a past medical history significant for fibrillation, hypertension, anticoagulated on Coumadin, dual-chamber pacemaker, BPH, GERD, and confirmed coronavirus who presented to the emergency department today with worsening dyspnea and pleurisy over the last 24 hours. Evaluation in the emergency department revealed hypertension but otherwise stable vital signs; maintaining oxygen saturations in the mid 90s on room air. He was found to have benign CBC, appropriate INR (2.65) elevated d-dimer 2.92, baseline renal function, negative troponin, and reassuring ferritin, LDH, CRP, vitamin D. Chest x-ray was negative for acute findings, however, chest CTA demonstrated bilateral groundglass opacities. He is referred to the hospitalist service for further evaluation management of the above-stated complaints findings. Hospital Course Hospital Course: (1) Pneumonia Improved; patient is now ambulatory on room air and reports that he is asymptomatic. Lung sounds clear. CTA chest shows groundglass opacities to bilateral upper lobes. Recently diagnosed COVID positive. Has had multiple ER visits due to supratherapeutic INR; raises the possibility of a healthcare associated pneumonia. Blood cultures have no growth at 4 days Sputum cultures not received; patient did not have sputum production. He was admitted to medical floor on continuous cardiac telemetry. He was empirically placed on IV Rocephin and azithromycin. He is discharged home on p.o. azithromycin and Cefpodoxime to complete antibiotic course. He was supported with supplemental oxygen, scheduled as needed nebulizer treatments, and Mucinex twice daily. Pulmonary toilet is encouraged. (2) COVID-19 Confirmed COVID-19 D-dimer elevated, however, all other supportive testing is benign. Supported with vitamin C, vitamin D, zinc, melatonin; recommend continued [id number] supplements per patient discretion. Remaining management as above. (3) GERD (gastroesophageal reflux disease) Continue Protonix twice daily (4) Anticoagulated on Coumadin Therapeutic INR. Goal 2-3 (5) Atrial fibrillation Persistent atrial fibrillation. Monitor on telemetry. Continue anticoagulation with Coumadin; pharmacy to dose. Continue home dose Tikosyn (6) BPH (benign prostatic hyperplasia) Continue Proscar; start tamsulosin (7) History of cardiac pacemaker in situ (8) Urinary retention ED patient developed urinary retention and requested straight cathing due to overflow incontinence. He confirms that he has had difficulties with this in the past and is established with a urologist. We discussed starting Flomax and continuing intermittent catheterization x24 hours versus discharging home with Negron catheter/leg bag. The patient elects to discharge home with close urology follow-up. Physical Exam Vital Signs: Temp Pulse Resp BP Pulse Ox 97.6 F 70 15 136/90 H 96 05/16/20 14:57 05/16/20 14:57 05/16/20 14:57 05/16/20 14:57 05/16/20 14:57 Intake & Output 05/17/20 05/18/20 05/19/20 06:59 06:59 06:59 Intake Total 1560 Output Total 650 Balance 910 General appearance: PRESENT: no acute distress, cooperative, obese, well- developed, well-nourished Head exam: PRESENT: atraumatic, normocephalic Eye exam: PRESENT: conjunctiva pink, EOMI, PERRLA. ABSENT: scleral icterus Mouth exam: PRESENT: moist, tongue midline Respiratory exam: PRESENT: clear to auscultation piter, symmetrical, unlabored, other - Ambulatory on room air. ABSENT: rales, rhonchi, wheezes Cardiovascular exam: PRESENT: irregular rhythm, +S1, +S2. ABSENT: diastolic murmur, rubs, systolic murmur Pulses: PRESENT: normal dorsalis pedis pul Vascular exam: PRESENT: normal capillary refill Gentrourinary exam: PRESENT: indwelling catheter Extremities exam: PRESENT: full ROM. ABSENT: calf tenderness, clubbing, pedal edema Musculoskeletal exam: PRESENT: ambulatory Neurological exam: PRESENT: alert, awake, oriented to person, oriented to place, oriented to time, oriented to situation, CN II-XII grossly intact. ABSENT: motor sensory deficit Psychiatric exam: PRESENT: appropriate affect, normal mood. ABSENT: homicidal ideation, suicidal ideation Skin exam: PRESENT: dry, intact, warm. ABSENT: cyanosis, rash Results Laboratory Results: WBC 7.6 10^3/uL (4.0-10.5) 05/16/20 05:30 RBC 3.68 10^6/uL (4.35-5.55) L 05/16/20 05:30 Hgb 13.1 g/dL (13.5-17.0) L 05/16/20 05:30 Hct 39.9 % (37.9-51.0) 05/16/20 05:30 MCV 108 fl (80-97) H 05/16/20 05:30 MCH 35.6 pg (27.0-33.4) H 05/16/20 05:30 MCHC 32.8 g/dL (32.0-36.0) 05/16/20 05:30 RDW 23.7 % (11.5-14.0) H 05/16/20 05:30 Plt Count 244 10^3/uL (150-450) 05/16/20 05:30 Lymph % (Auto) 13.0 % (13-45) 05/15/20 06:09 [place] % (Auto) 7.9 % (3-13) 05/15/20 06:09 Eos % (Auto) 1.2 % (0-6) 05/15/20 06:09 Baso % (Auto) 1.1 % (0-2) 05/15/20 06:09 Absolute Neuts (auto) 4.9 10^3/uL (1.7-8.2) 05/15/20 06:09 Absolute Lymphs (auto) 0.8 10^3/uL (0.5-4.7) 05/15/20 06:09 Absolute Monos (auto) 0.5 10^3/uL (0.1-1.4) 05/15/20 06:09 Absolute Eos (auto) 0.1 10^3/uL (0.0-0.6) 05/15/20 06:09 Absolute Basos (auto) 0.1 10^3/uL (0.0-0.2) 05/15/20 06:09 Seg Neutrophils % 76.8 % (42-78) 05/15/20 06:09 Platelet Estimate Cancelled 05/14/20 07:35 Platelet Comment ADEQUATE 05/14/20 08:43 Polychromasia SLIGHT 05/14/20 08:43 Poikilocytosis SLIGHT 05/14/20 08:43 Anisocytosis 3+ 05/14/20 08:43 Macrocytosis 2+ 05/14/20 08:43 Tear Drop Cells SLIGHT 05/14/20 08:43 Ovalocytes SLIGHT 05/14/20 08:43 Stomatocytes SLIGHT 05/14/20 08:43 Schistocytes SLIGHT 05/14/20 08:43 PT 27.3 SEC (11.4-15.4) H 05/16/20 05:30 INR 2.54 05/16/20 05:30 D-Dimer 2.92 ug/mL (0.00-0.50) H 05/14/20 07:35 VBG pH 7.35 (7.30-7.42) 05/14/20 07:35 VBG pCO2 50.9 mmHg (35-63) 05/14/20 07:35 VBG HCO3 27.7 mmol/L (20-32) 05/14/20 07:35 VBG Base Excess 1.3 mmol/L 05/14/20 07:35 Sodium 138.1 mmol/L (137-145) 05/16/20 05:30 Potassium 3.8 mmol/L (3.6-5.0) 05/16/20 05:30 Chloride 111 mmol/L (98-107) H 05/16/20 05:30 Carbon Dioxide 24 mmol/L (22-30) 05/16/20 05:30 Anion Gap 3 (5-19) L 05/16/20 05:30 BUN 11 mg/dL (7-20) 05/16/20 05:30 Creatinine 1.06 mg/dL (0.52-1.25) 05/16/20 05:30 Est GFR ( Amer) > 60 (>60) 05/16/20 05:30 Est GFR (Non-Af Amer) Cancelled 05/14/20 07:35 Est GFR (MDRD) Non-Af > 60 (>60) 05/16/20 05:30 Glucose 99 mg/dL (75-110) 05/16/20 05:30 POC Glucose 108 mg/dL (70-110) 05/14/20 07:57 Lactic Acid 1.2 mmol/L (0.7-2.1) 05/14/20 13:56 Calcium 8.4 mg/dL (8.4-10.2) 05/16/20 05:30 Ferritin 75.80 ng/mL (17.9-464.0) 05/14/20 11:30 Total Bilirubin 0.8 mg/dL (0.2-1.3) 05/14/20 08:43 Direct Bilirubin 0.0 mg/dL (0.0-0.4) 05/14/20 08:43 Neonat Total Bilirubin Not Reportable 05/14/20 08:43 Neonat Direct Bilirubin Not Reportable 05/14/20 08:43 Neonat Indirect Bili Not Reportable 05/14/20 08:43 AST 37 U/L (17-59) 05/14/20 08:43 ALT 19 U/L (<50) 05/14/20 08:43 Alkaline Phosphatase 86 U/L (38-126) 05/14/20 08:43 Lactate Dehydrogenase 234 U/L (120-246) 05/14/20 11:30 Troponin I < 0.012 ng/mL 05/14/20 08:43 C-Reactive Protein < 5.0 mg/L (<10.0) 05/14/20 11:30 Total Protein 6.1 g/dL (6.3-8.2) L 05/14/20 08:43 Albumin 3.1 g/dL (3.5-5.0) L 05/14/20 08:43 EGFR Cancelled 05/14/20 07:35 Vitamin D 25-Hydroxy 56.2 ng/mL (14.7-68.3) 05/14/20 08:43 Urine Color YELLOW 05/15/20 17:48 Urine Appearance CLEAR 05/15/20 17:48 Urine pH 7.0 (5.0-9.0) 05/15/20 17:48 Ur Specific [place] 1.013 05/15/20 17:48 Urine Protein NEGATIVE mg/dL (NEGATIVE) 05/15/20 17:48 Urine Glucose (UA) NEGATIVE mg/dL (NEGATIVE) 05/15/20 17:48 Urine Ketones NEGATIVE mg/dL (NEGATIVE) 05/15/20 17:48 Urine Blood LARGE (NEGATIVE) H 05/15/20 17:48 Urine Nitrite NEGATIVE (NEGATIVE) 05/15/20 17:48 Urine Bilirubin NEGATIVE (NEGATIVE) 05/15/20 17:48 Urine Urobilinogen NEGATIVE mg/dL (<2.0) 05/15/20 17:48 Ur Leukocyte Esterase NEGATIVE (NEGATIVE) 05/15/20 17:48 Urine WBC (Auto) 12 /HPF 05/15/20 17:48 Urine RBC (Auto) 154 /HPF 05/15/20 17:48 Urine Bacteria (Auto) TRACE /HPF 05/15/20 17:48 Urine Mucus (Auto) RARE /LPF 05/15/20 17:48 Urine Ascorbic Acid NEGATIVE (NEGATIVE) 05/15/20 17:48 Slides for Path Review Cancelled 05/14/20 07:35 05/14/20 05/14/20 07:35 08:43 Troponin I Cancelled < 0.012 Impressions: Chest X-Ray 05/14/20 07:24 IMPRESSION: NO ACUTE RADIOGRAPHIC FINDING IN THE CHEST. Chest/Abdomen CTA 05/14/20 08:28 IMPRESSION: Bilateral upper lobe ground-glass opacities consistent with pneumonia. Plan Plan of Treatment: He is discharged home in stable condition. Advised to follow-up with his primary care provider within 1 week. Due to urinary retention, Negron catheter with leg bag was placed. He is instructed to call his established urologist office on Monday to schedule an appointment for the earliest available appointment. He is discharged on new prescription for Flomax. He is advised to complete his full course of antibiotic therapy. He is instructed to return to the emergency department as needed for concerning symptoms. Time Spent: Greater than 30 Minutes Stroke Is this a Stroke Patient?: No Acute Heart Failure - Is this a Heart Failure Patient?: No
[2020-05-21] MEDS ORDERED: METOLAZONE 2.5 MG TABLET PO SCH (10:00)
== END 2020-05-16 15:28 | disposition home or self-care (01) | DRG 195 ==
LOC: ER 06:55 → EH 12:30 → 3W 21:02
PROVIDERS: ADMIT Internal Medicine; ATTEND Registered Nurse
DX: J18.9 Pneumonia, unspecified organism (principal); I48.91 Unspecified atrial fibrillation; I10 Essential (primary) hypertension; K21.9 Gastro-esophageal reflux disease without esophagitis; N40.1 Benign prostatic hyperplasia with lower urinary tract symptoms; R33.8 Other retention of urine; M19.90 Unspecified osteoarthritis, unspecified site; Z95.0 Presence of cardiac pacemaker; Z86.19 Personal history of other infectious and parasitic diseases; Z79.01 Long term (current) use of anticoagulants; Z79.891 Long term (current) use of opiate analgesic; Z79.899 Other long term (current) drug therapy
CPT/HCPCS: 36415; 71045; 71275; 80048; 80053; 81001; 82306; 82728; 82803; 82962; 83605; 83615; 84484; 85025; 85027; 85379; 85610; 86140; 87040; 93005; 93010; 94640; 94667; 94799; 99285; J0456; J0696; J3490; J7030; J7060